=== PATIENT | female | born 1955 | race Caucasian/White ===

== ENCOUNTER → 2018-08-23 | Outpatient (CLI) | payer BC ==
--- NOTE | 2018-08-26 09:01 | MM ---
Reason for exam: screening (asymptomatic). Last mammogram was performed 3 years and 10 months ago. History: Patient is postmenopausal. Benign excisional biopsy of the left breast, 2007. Benign excisional biopsy of the right breast. Took estrogen for 5 years. Physical Findings: A clinical breast exam by your physician is recommended on an annual basis and results should be correlated with mammographic findings. MG 3D Screening Mammo W/Cad Bilateral CC and MLO view(s) were taken. Prior study comparison: October 10, 2014, mammogram, performed at [facility]. June 14, 2013, mammogram, performed at [facility]. There are scattered fibroglandular densities. Previous mammotome biopsy in the right and left breast. No significant changes when compared with prior studies. ASSESSMENT: Benign, BI-RAD 2 RECOMMENDATION: Routine screening mammogram of both breasts in 1 year.
== END | disposition home or self-care (01) ==
LOC: RADMAMWWP 13:30
PROVIDERS: ATTEND Family Medicine
DX: Z12.31 Encounter for screening mammogram for malignant neoplasm of breast (principal)
CPT/HCPCS: 77063; 77067

== ENCOUNTER → 2019-11-06 | Outpatient (CLI) | payer BC ==
--- NOTE | 2019-11-08 14:37 | MM ---
Reason for exam: screening (asymptomatic). Last mammogram was performed 1 year and 2 months ago. History: Patient is postmenopausal. Benign excisional biopsy of the left breast, 2007. Benign excisional biopsy of the right breast. Took estrogen for 5 years. Physical Findings: A clinical breast exam by your physician is recommended on an annual basis and results should be correlated with mammographic findings. MG 3D Screening Mammo W/Cad Bilateral CC and MLO view(s) were taken. Prior study comparison: August 23, 2018, bilateral MG 3d screening mammo w/cad. October 10, 2014, mammogram, performed at [facility]. The breast tissue is heterogeneously dense. This may lower the sensitivity of mammography. There are benign appearing round calcifications bilaterally. Previous mammotome biopsy in the right and left breast. There is no discrete abnormality. ASSESSMENT: Benign, BI-RAD 2 RECOMMENDATION: Routine screening mammogram of both breasts in 1 year.
== END | disposition home or self-care (01) ==
LOC: RADMAMWWP 13:56
PROVIDERS: ATTEND Internal Medicine
DX: Z12.39 Encounter for other screening for malignant neoplasm of breast (principal)
CPT/HCPCS: 77063; 77067

== ENCOUNTER → 2022-04-15 | Outpatient (CLI) | payer MEDICARE ==
--- NOTE | 2022-04-16 14:50 | MM ---
Reason for Exam: Screening (asymptomatic). Last mammogram was performed 2 year(s) and 5 month(s) ago. Patient History: Menarche at age 15. First Full-Term at age 20. Postmenopausal. Patient used Estrogen for 5 years. Benign Excisional Biopsy on the right side. 2008, Benign Excisional Biopsy on the left side. Risk Values: Lianet 5 year model risk: 2.1%. NCI Lifetime model risk: 7.3%. Film Views: Bilateral CC views were taken. Bilateral MLO views were taken. Prior Study Comparison: 10/10/2014 Screening Mammogram, [facility]. 08/23/2018 Bilateral Screening Mammogram, [facility]. 11/06/2019 Bilateral Screening Mammogram, [facility]. Tissue Density: There are scattered fibroglandular densities. Findings: Analyzed By CAD. HX OF BILAT BENIGN EXCISIONAL BXs....NO SCARS VISUALIZED....BX MARKER IN EACH BREAST There is no suspicious group of microcalcifications or new suspicious mass in either breast. Overall Assessment: Benign, BI-RAD 2 Management: Screening Mammogram of both breasts in 1 year. A clinical breast exam by your physician is recommended on an annual basis and results should be correlated with mammographic findings. Electronically signed and approved by: Alton Kahn M.D. Radiologis
== END | disposition home or self-care (01) ==
LOC: RADMAMWWP 09:17
PROVIDERS: ATTEND Internal Medicine
DX: Z12.31 Encounter for screening mammogram for malignant neoplasm of breast (principal); Z78.0 Asymptomatic menopausal state
CPT/HCPCS: 77063; 77067

== ENCOUNTER → 2022-06-01 | Outpatient (CLI) | payer MEDICARE ==
--- NOTE | 2022-06-01 11:31 | XR ---
EXAMINATION TYPE: XR chest 2V DATE OF EXAM: 06/01/2022 COMPARISON: NONE TECHNIQUE: PA and lateral views submitted. HISTORY: Shortness of breath FINDINGS: The lungs are clear and there is no pneumothorax, pleural effusion, or focal pneumonia. Hypertrophi c and degenerative changes spine. Heart size is normal. No failure. Curvature of the spine. Mild supe rior endplate compression deformity thoracolumbar junction. No overt failure. IMPRESSION: 1. No acute process.
== END | disposition home or self-care (01) ==
LOC: RADXRMAIN 11:13
PROVIDERS: ATTEND Internal Medicine
DX: R06.09 Other forms of dyspnea (principal)
CPT/HCPCS: 71046

== ENCOUNTER → 2022-08-11 | Outpatient (CLI) | payer MEDICARE ==
[2022-08-11 10:21] LABS: African American GFR (CKD) >90 (>60 ml/min/1.73 sqM); Blood Urea Nitrogen 13 mg/dL (7-17); Non-African American GFR(CKD) >90 (>60 ml/min/1.73 sqM)
--- NOTE | 2022-08-11 10:54 | CT ---
EXAMINATION TYPE: CT chest w con CT DLP: 167.70 mGycm, Automated exposure control for dose reduction was used. DATE OF EXAM: 08/11/2022 10:40 AM CLINICAL INDICATION:Female, 67 years old with history of R06.09 DYSPNEA; PHH, cough TECHNIQUE: Multiple axial images were obtained through the chest following the administration of 70 c c of Isovue 300. Coronal and sagittal reformats reviewed. FINDINGS: LUNGS/ PLEURA: Biapical pleural-parenchymal scarring. No pneumothorax or pleural effusion. Right upp er lobe 1.2 cm groundglass opacity (series 4, image 15). Right middle lobe 2.5 x 1.6 cm consolidative opacity (series 4, image 34). AIRWAY: Patent and unremarkable.. HEART: Size within normal limits. No pericardial effusion. MEDIASTINUM: No gross evidence of adenopathy. VASCULATURE: No aortic aneurysm. MUSCULOSKELETAL: No acute osseous abnormalities. No aggressive osseous lesions. Levo curvature of the thoracic spine. SOFT TISSUES/LYMPH NODES: Unremarkable. LOWER NECK: No significant findings. UPPER ABDOMEN: No significant findings. IMPRESSION: Right middle lobe 2.5 cm consolidative opacity and right upper lobe 1.2 cm groundglass opacity. This may represent an infectious/inflammatory process. However malignancy is not excluded. Follow-up CT in 3-6 months is recommended to assess for resolution.
== END | disposition home or self-care (01) ==
LOC: RADCTMAIN 09:41
PROVIDERS: ATTEND Internal Medicine
DX: R91.8 Other nonspecific abnormal finding of lung field (principal)
CPT/HCPCS: 82565; 84520; 71260; 36415; Q9967

== ENCOUNTER → 2023-08-06 | Outpatient (CLI) | payer MEDICARE ==
[2023-08-06 10:50] LABS: African American GFR (CKD) >90 (>60 ml/min/1.73 sqM); Blood Urea Nitrogen 15 mg/dL (7-17); Non-African American GFR(CKD) >90 (>60 ml/min/1.73 sqM)
--- NOTE | 2023-08-06 13:25 | CT ---
EXAMINATION TYPE: CT chest w con DATE OF EXAM: 08/06/2023 COMPARISON: 08/11/2022 HISTORY: 68-year-old female R91.1, pulmonary nodule TECHNIQUE: Contiguous axial scanning of the chest after the administration of 100 mL of Isovue 300. Coronal/sagittal reconstructions performed. CT DLP: 531mGycm. Automatic exposure control utilized for a dose reduction. FINDINGS: The heart is normal size without pericardial effusion. Three-vessel coronary artery calcifications ar e present in the remarkable for coronary artery disease. Aorta normal caliber with conventional arch vessel branching anatomy. No thoracic lymphadenopathy by CT size criteria. * Vague 1.1 cm groundglass patchy anterior right upper lobe is unchanged. Biapical pleural parenchym al scarring redemonstrated. * Focal consolidation measuring 2.8 x 1.9 cm in the right middle lobe previously measured 2.4 x 1.7 cm. Minimal emphysematous change. No new consolidation or pleural effusion. Bilateral extrarenal pelves. Visualized upper abdomen shows moderate wording. Bones: Slight dextroconvex scoliotic curvature with moderate degenerative disc disease midthoracic sp ine. IMPRESSION: Focal consolidation right middle lobe measures 2.8 x 1.9 cm versus 2.4 x 1.7 cm, previously. Consider a focus of adenomatous hyperplasia. Given the very slow growth, recommend ongoing surveillance follo w-up to exclude development into an adenocarcinoma. The 1.1 cm right upper lobe groundglass remains u nchanged and similar follow-up can be performed.
== END | disposition home or self-care (01) ==
LOC: RADCTMAIN 09:32
PROVIDERS: ATTEND Internal Medicine
DX: R91.1 Solitary pulmonary nodule (principal); R91.8 Other nonspecific abnormal finding of lung field
CPT/HCPCS: 82565; 84520; 71260; 36415; Q9967

== ENCOUNTER → 2023-10-07 | Outpatient (CLI) | payer MEDICARE ==
--- NOTE | 2023-10-10 13:32 | PE ---
EXAMINATION TYPE: PET CT fusion skull to thigh DATE OF EXAM: 10/07/2023 COMPARISON: CT chest 08/06/2023 Prior PET/CT: No prior HISTORY: Solitary pulmonary nodule TECHNIQUE: Following the intravenous administration of 10.4 mCi of F-18 FDG, whole body images are p erformed from the skull base to the midthigh. Images are reviewed on the computer in the coronal, ax ial, and sagittal planes. Reconstructed rotating images are created on independent workstation and r eviewed on the computer. A localization and attenuation correction CT is performed in conjunction w ith the PET scan. DLP: 282.45 mGycm SCAN: Initial Blood glucose: 86 mg/dL Average Mediastinum SUV: 2.08 Average Liver SUV: 2.64 FINDINGS: NECK: No abnormal uptake THORAX: There is uptake within the right middle lobe mass near the lung base measuring 2.62. Max SUV is 4.08. No suspicious mediastinal uptake. Small peripheral right upper lobe nodule has uptake of SUV 0.96. Image 73 ABDOMEN: No abnormal uptake PELVIS: No abnormal uptake OSSEOUS STRUCTURES: No abnormal uptake LOCALIZATION CT: Groundglass opacities within the anterior right lung, image 87. No significant uptak e, neoplasm however is not excluded for groundglass opacities. COMPARISON: Current measurements of right lower lobe density is 2.0 x 3.[address] measurement 2.8 x 1.9 cm. IMPRESSION: 1. Increased uptake right lobe lung base mass suspicious for neoplasm. This is slightly greater than background and other etiologies including atelectasis could be within the differential. 2. No additional suspicious area of uptake to suggest primary or metastatic neoplasm.
== END | disposition home or self-care (01) ==
LOC: RADPETMAIN 07:38
PROVIDERS: ATTEND Internal Medicine Critical Care Medicine
DX: R91.1 Solitary pulmonary nodule (principal); R91.8 Other nonspecific abnormal finding of lung field
CPT/HCPCS: 78815; A9552

== ENCOUNTER 2023-11-25 10:38 | Day surgery (SDC) | payer MEDICARE ==
[2023-11-17 16:42] VITALS: BMI 21.2
[~2023-11-25 10:38] MED LIST: LACTATED RINGERS 1,000 ML IV SCH
--- NOTE | 2023-11-25 11:24 | CT ---
EXAMINATION TYPE: CT chest wo con DATE OF EXAM: 11/25/2023 COMPARISON: Chest CT August 06, 2023 and PET/CT October 07, 2023 HISTORY: pre bronchoscopy CT DLP: 456 mGycm. Automated Exposure Control for Dose Reduction was Utilized. TECHNIQUE: CT scan of the thorax is performed without IV contrast. FINDINGS: Exam is for bronchoscopy planning and not for diagnostic purposes. Stable near 1 cm focus of groundgl ass opacity anterior right upper lobe axial image 78. Slight interval Worsening of the area of ground glass opacity and more inferior focal nodular consolidation in the right middle lobe from axial imag es 160 through 190. Prominent but subcentimeter lymph nodes in the pericarinal and subcarinal region are noted. IMPRESSION: As above.
[2023-11-25] MEDS ORDERED: ONDANSETRON 4 MG/2 ML VIAL ONE (11:41)
[2023-11-25] MEDS ORDERED: ONDANSETRON 4 MG/2 ML VIAL IVP ONE (11:44)
[2023-11-25] MEDS ORDERED: DEXAMETHASONE SOD PHOSPHATE 4 MG/ML 1 ML VIAL IVP ONE (11:44)
[2023-11-25] MEDS ORDERED: PROPOFOL 10 MG/ML 20 ML VIAL IV ONE (12:35)
[2023-11-25] MEDS ORDERED: NEOSTIGMINE 1 MG/ML 10 ML VIAL ONE (12:35)
[2023-11-25] MEDS ORDERED: SUCCINYLCHOLINE CHLORIDE 200 MG/10 ML VIAL IV ONE (12:35)
[2023-11-25] MEDS ORDERED: GLYCOPYRROLATE 0.2 MG/ML 2 ML VIAL ONE (12:35)
[2023-11-25] MEDS ORDERED: fentaNYL (PF) 50 MCG/ML 2 ML AMP ONE (12:35)
[2023-11-25] MEDS ORDERED: MIDAZOLAM 2 MG/2 ML VIAL ONE (12:35)
[2023-11-25] MEDS ORDERED: LIDOCAINE 1% INJ 10MG/ML (20 ML MDV) ONE (12:35)
[2023-11-25] MEDS ORDERED: ROCURONIUM 10 MG/ML (5 ML VIAL) IV ONE (12:35)
[2023-11-25 14:13] VITALS: TEMP 97
--- NOTE | 2023-11-25 14:40 | FL ---
EXAMINATION TYPE: FL bronchoscopy Intraoperative/procedural fluoroscopic services were provided. Tota l fluoroscopy time is 81.3 seconds with a total of 9 submitted images to PACS. Please see the operati ve/procedural note for further details. DAP: 0.20415 Gycm2
--- NOTE | 2023-11-25 15:22 | XR ---
EXAMINATION TYPE: XR chest 1V portable DATE OF EXAM: 11/25/2023 COMPARISON: 06/01/2022 INDICATION: Post bronchoscopy TECHNIQUE: Single frontal view of the chest is obtained. FINDINGS: The heart size is normal. The pulmonary vasculature is normal. There is increased lung markings seen in the right infrahilar region. Underlying masses are not exclu ded. Infiltrate could be considered. No pneumothorax is evident post bronchoscopy IMPRESSION: 1. Right infrahilar filtrate or mass. Follow-up is recommended.
[2023-11-25 15:45] VITALS: RESP 16
[2023-11-25 16:08] VITALS: BP 139/79; PULSE 55
--- NOTE | 2023-11-26 08:18 | P.PCN ---
Date of Procedure: 11/25/23 Operative Findings: Preoperative Diagnosis: Right middle lobe opacity Postoperative Diagnosis: Right middle lobe opacity mediastinal lymphadenopathy on endobronchial ultrasound. Procedure(s) Performed: Flexible bronchoscopy Robotic-assisted bronchoscopy and addition to radial ultrasound evaluation of the Right middle lobe mass/opacity Robotic-assisted transbronchial needle aspirate, transbronchial biopsies of the Right middle lobe mass in addition to a bronchioloalveolar lavage Endobronchial ultrasound for mediastinal lymph node evaluation TBNA of the station [address] Anesthesia: GETA Surgeon: Mayur Huertas Estimated Blood Loss (ml): 0 Pathology: other Condition: stable Disposition: same day Operative Findings: A physical exam was performed. Informed consent was obtained from the patient after explaining all the risks (pneumothorax, life threatening bleeding, infection and adverse effects due to medications), benefits and alternatives to the procedure which the patient appeared to understand and so stated. The patie nt was connected to the monitoring devices. General anesthesia was induced and the patient was intubated by anesthesia. A final timeout was performed and the procedure confirmed by the attending staff bronchoscopist. The bronchoscope was inserted and the airway examined. The flexible bronchoscope was removed and the robotic bronchoscope was inserted. Registration was completed. I next guided the robotic bronchoscope using the navigation system into the right middle lobe lateral segment. Once in proper position, the bronchoscope was frozen. The radial EBUS probe was placed through the bronchoscope and confirmed abnormal u/s images vs normal lung. A needle was placed through the working channel and under fluoroscopic guidance, we sampled the area thought to have the mass twice. We then used a cloud biopsy pattern with ultrasound confirmation for 2 additional passes with the needle. U/S evaluation was then used to reconfirm location. Forceps were next introduced through working channel and extended the appropriate distance and 3 transbronchial biopsies were performed using fluoroscopic guidance. The u/s probe was then reinserted to confirm location. When confirmed this process was repeated for a total of 8-10 transbronchial biopsies. After reassessment with EBUS, a brush was placed through the extendable working channel for 1 pass with fluoroscopic guidance. U/S evaluation was then used to confirm location. 40ml of saline was then instilled into the area of the lesion. The robotic bronchoscope was removed and the airway inspected with a flexible bronchoscope and 10 ml of effluent from the BAL was collected. The aspirate was bloody and ultimately declotted and based on that, the sample was discarded. Flex. bronchoscope was inserted and regular suctioning was done. At the completion of the procedure, no residual secretions or bloody material within the airway. The bronchoscope was removed. The patient was extubated. Endobronchial ultrasound was done with mediastinal lymph node evaluation. Her last evaluation of the various mediastinal stations yielded a 12 mm subcarinal lymph node and 8 mm right hilar station 10 R lymph nodes. Transbronchial needle aspirates of both was done using a 22-gauge vizishot needle. A total of 3 passes were obtained from each station. No complication, endobronchial ultrasound was removed and flexible bronchoscope was reinserted for clearance of the airway, any recurrent secretions. Bronchoscope was removed and the patient was transferred to recovery in stable condition. No complications. FINDINGS: 1.The airways appeared normal 2 Successful navigation, ultrasonographic identification, and biopsies of Right middle lobe mass 3.The the radial ultrasound view was (Concentric). RECOMMENDATIONS: Await pathology and cytology results The referring physician will be alerted to the results when available. The patient was advised to follow up with the referring physician with the biopsy results Patient will be called with results.
== END 2023-11-25 16:00 | disposition home or self-care (01) ==
LOC: ORWHC2ENDO 10:38
PROVIDERS: ATTEND Internal Medicine Critical Care Medicine
DX: C34.2 Malignant neoplasm of middle lobe, bronchus or lung (principal); Z11.52 Encounter for screening for COVID-19; G47.33 Obstructive sleep apnea (adult) (pediatric); E78.5 Hyperlipidemia, unspecified; E03.9 Hypothyroidism, unspecified; M81.0 Age-related osteoporosis without current pathological fracture; Z79.82 Long term (current) use of aspirin; Z79.890 Hormone replacement therapy; Z79.899 Other long term (current) drug therapy
CPT/HCPCS: 87798 ×3; 87496; 87498; 87529; 88108; 88305; 88342; 87502; 87634; 88341; 87070; 87205; 87116; 87102; 87206; 87635; 71045; 71250; 31628; 31623; 31624; 31652; J2250; J0330; J1100; J2710; J2405; J2001; J3010; J2704; S2900; 31633

== ENCOUNTER → 2023-12-13 | Outpatient (CLI) | payer MEDICARE ==
--- NOTE | 2023-12-13 09:31 | MR ---
EXAMINATION TYPE: MR brain wo/w con DATE OF EXAM: 12/13/2023 9:04 AM CLINICAL INDICATION:Female, 68 years old with history of C34.2, Lung Cancer COMPARISON: 11/02/2012 TECHNIQUE: Multi planar, multi sequence imaging was performed through the brain including: T1, T2, In version recovery, susceptibility weighted imaging and gradient echo imaging and Diffusion weighted im aging. The patient was then given intravenous contrast and multi planar, T1 fat-saturation images wer e obtained. IV Contrast: 6 cc Gadavist FINDINGS: No cerebellar developmental venous anomaly with postcontrast enhancement and blooming artif act present. The sarabia-white junctions, ventricular system, basal cisterns appear unremarkable. Diffu aly-weighted imaging shows no evidence of restricted diffusion to suggest acute/subacute infarct. In tracranial arterial flow voids are maintained. Midline structures show no abnormality. Scattered foci of high T2 signal intensity are seen within the periventricular white matter. The susceptibility minor ghted images do not reveal any evidence for micro-hemorrhage. After administration of gadolinium, no abnormal enhancement is seen. The bone marrow signal is within normal limits. Paranasal sinuses and mastoid air cells: No significant paranasal sinus disease. Visualized orbits: Bilateral aphakia IMPRESSION: 1. No abnormal postcontrast enhancement to suggest intra-axial metastatic disease. No evidence of int racranial mass, acute/subacute infarct, or abnormal enhancement. 2. Left cerebellar hemisphere developmental venous anomaly. 3. Nonspecific white matter changes, likely related to small vessel ischemic disease.
== END | disposition home or self-care (01) ==
LOC: RADMRIMAIN 08:16
PROVIDERS: ATTEND Internal Medicine Hematology & Oncology
DX: Q28.3 Other malformations of cerebral vessels (principal); G93.89 Other specified disorders of brain; C34.2 Malignant neoplasm of middle lobe, bronchus or lung
CPT/HCPCS: 70553; A9585

== ENCOUNTER → 2023-12-16 | Outpatient (CLI) | payer MEDICARE ==
--- NOTE | 2023-12-16 12:35 | CA ---
Exercise Stress Test Report Name: Vanessa Gonzalez Exam Date: 12/16/2023 11:10 Exam Location: [place] Stress Ht (in): 68 Wt (lb): 140 BSA: 1.76 Ordering Phys: Truong Estrella MD Referring Phys: MARY, Technologist: Jv Howard Age: 68 Gender: F : 1955 Procedure CPT: Indications: C34.2 LUNG CANCER ICD-10 Codes: Patient History: Medications: Meds past 24 hrs: Pretest Chest Pain: STRESS TEST Parth Protocol Exercise Duration (min:sec): 09:[address] Depressions (mm): Angina Score: Denis Score: Resting HR (bpm): 67 Peak HR (bpm): 155 Resting BP (mmHg): 123 / 82 Peak BP (mmHg): 164 / 100 MPHR: 152 Target HR: 129 % MPHR: 102 METS: 10.9 Total Dose: Peak Dose: Atropine: Double Product: 85799 BP Response: Stress Termination: Reached target heart rate Stress Symptoms: No chest pain or symptoms Stress Summary: ECG ANALYSIS Resting ECG: Stress ECG: CONCLUSIONS Excellent exercise tolerance Normal EKG in response to exercise Dr. Shailesh Graves MD (Electronically Signed) Final Date: 16 December 2023 12:34
== END | disposition home or self-care (01) ==
LOC: RADNMMAIN 10:32
PROVIDERS: ATTEND Thoracic Surgery (Cardiothoracic Vascular Surgery)
DX: C34.2 Malignant neoplasm of middle lobe, bronchus or lung (principal)
CPT/HCPCS: 93017

== ENCOUNTER → 2024-01-03 | Outpatient (CLI) | payer MEDICARE ==
[2024-01-03 11:01] LABS: Partial Thromboplastin Time 24.6 sec (22.0-30.0); Prothrombin Time 10.6 sec (10.0-12.5)
[2024-01-03 15:54] LABS: Blood Urea Nitrogen 12.6 mg/dL (9.0-27.0); Carbon Dioxide 27.1 mmol/L (21.6-31.8); Chloride 97 mmol/L (96-109); Glucose 100 mg/dL (70-110); Potassium 4.1 mmol/L (3.5-5.5); Sodium 136 mmol/L (135-145)
[2024-01-03 16:10] LABS: Basophils # (A) 0.03 X 10*3/uL (0.00-0.10); Basophils % (A) 0.7 %; Eosinophils # (A) 0.06 X 10*3/uL (0.04-0.35); Eosinophils % (A) 1.4 %; HCT 42.5 % (37.2-46.3); Lymphocytes # (A) 1.33 X 10*3/uL (0.90-5.00); Lymphocytes % (A) 31.2 %; MCH 31.3 pg (27.0-32.0); MCHC 32.9 g/dL (32.0-37.0); MCV 94.9 FL (80.0-97.0); Mean Platelet Volume 10.7 FL (9.5-12.2); Monocytes # (A) 0.59 X 10*3/uL (0.20-1.00); Monocytes % (A) 13.8 %; NRBC Per 100 WBC 0 X 10*3/uL (0.00-0.01); Neutrophils # (A) 2.24 X 10*3/uL (1.80-7.70); Neutrophils % (A) 52.7 %; Platelet Count 213 X 10*3/uL (140-440); RBC 4.48 X 10*6/uL (4.10-5.20); RDW 14.1 % (11.5-14.5); WBC 4.26 X 10*3/uL (4.50-10.00)
[2024-01-03 17:33] LABS: Appearance,Urine Clear (Clear); Bilirubin,Urine Negative (Negative); Blood,Urine Negative (Negative); Color,Urine Yellow (Yellow); Ketones,Urine Negative (Negative); Nitrite,Urine Negative (Negative); PH, Urine 7.5; Specific Gravity,Urine 1.009 (1.001-1.030); Urobilinogen,Urine 0.2 E.U./DL
[2024-01-03 17:43] LABS: Bacteria,Urine None Seen (None Seen)
== END | disposition home or self-care (01) ==
LOC: LABPAT 10:06
PROVIDERS: ATTEND Thoracic Surgery (Cardiothoracic Vascular Surgery)
DX: Z01.812 Encounter for preprocedural laboratory examination (principal); C34.11 Malignant neoplasm of upper lobe, right bronchus or lung; E87.8 Other disorders of electrolyte and fluid balance, not elsewhere classified; Z79.899 Other long term (current) drug therapy; R58 Hemorrhage, not elsewhere classified; R00.1 Bradycardia, unspecified
CPT/HCPCS: 36415; 80051; 81001; 82565; 82947; 84520; 85025; 85610; 85730; 86850; 86900; 86901; 87086; 93005

== ENCOUNTER 2024-01-13 05:48 | Inpatient (IN) | payer MEDICARE ==
[2024-01-10 09:10] VITALS: BMI 21.2
[2024-01-13] MEDS: LACTATED RINGERS 1,000 ML IV SCH (06:10)
[2024-01-13] MEDS ORDERED: HYDROmorphone 0.5 MG/0.5 ML SYRINGE IVP PRN (07:00)
[2024-01-13] MEDS: fentaNYL (PF) 50 MCG/1 ML VIAL IVP ONE (07:23)
[2024-01-13] MEDS: ONDANSETRON 4 MG/2 ML VIAL IVP ONE (07:23)
[2024-01-13] MEDS: MIDAZOLAM 2 MG/2 ML VIAL IVP ONE (07:23)
[2024-01-13] MEDS ORDERED: GLYCOPYRROLATE 0.2 MG/ML 2 ML VIAL ONE (07:25)
[2024-01-13] MEDS ORDERED: ePHEDrine 50 MG/ML 1 ML VIAL ONE (07:25)
[2024-01-13] MEDS ORDERED: LIDOCAINE 1% INJ 10MG/ML (20 ML MDV) ONE (07:25)
[2024-01-13] MEDS ORDERED: PROPOFOL 10 MG/ML 20 ML VIAL IV ONE (07:25)
[2024-01-13] MEDS ORDERED: KETAMINE HCL IN 0.9 % NACL 50 MG/5 ML SYRINGE ONE (07:25)
[2024-01-13] MEDS ORDERED: ROPIVACAINE 5 MG/ML 30 ML VIAL ONE (07:25)
[2024-01-13] MEDS ORDERED: fentaNYL (PF) 50 MCG/ML 2 ML AMP ONE (07:25)
[2024-01-13] MEDS ORDERED: ROCURONIUM 10 MG/ML (5 ML VIAL) IV ONE (07:25)
[2024-01-13] MEDS ORDERED: SUCCINYLCHOLINE CHLORIDE 200 MG/10 ML VIAL IV ONE (07:25)
[2024-01-13] MEDS ORDERED: KETOROLAC 15 MG/ML 1 ML VIAL ONE (07:25)
[2024-01-13] MEDS ORDERED: MIDAZOLAM 2 MG/2 ML VIAL ONE (07:25)
[2024-01-13] MEDS ORDERED: HYDROmorphone (PF) 1 MG/ML ONE (07:25)
[2024-01-13] MEDS ORDERED: NEOSTIGMINE 1 MG/ML 10 ML VIAL ONE (07:25)
[2024-01-13] MEDS: BUPIVACAINE (PF) 0.5% 30 ML VIAL SQ ONE (08:15)
--- NOTE | 2024-01-13 09:22 | P.ANPRN ---
Procedure Note - Anesthesia - Nerve Block Performed Right Erector Spinae Single Time Out Performed: Yes ([id number]) Date of Procedure: 01/13/24 Procedure Start Time: Procedure Stop Time: Location of Patient: PreOp Indication: Acute Post-Operative Pain, Requested by Surgeon Specifically requested for management of pain by DrLane: Truong Estrella (\) Sedation Type: Sedate with meaningful contact maintained Preparation: Sterile Prep Position: Supine Catheter: None Needle Types: Pajunk Needle Gauge: 21 Ultrasound used to visualize needle placement: Yes Ultrasound used to observe medication spread: Yes Injectate: 0.5% Ropivacaine (see comment for volume) (30cc) Blood Aspirated: No Pain Paresthesia on Injection Noted: No Resistance on Injection: Normal Image Stored and Saved: Yes Events: Uneventful and Well Tolerated
--- NOTE | 2024-01-13 10:12 | P.OP ---
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 Bronchoscopy 2. Left robotic assisted thorascopic surgery with wedge resection x 3 3. Mediastinal lymph node dissection 4. Intercostal nerve block - 2 levels Anesthesia: INGRIDA Surgeon: Truong Estrella Flagger #1: Dallin De La Cruz Estimated Blood Loss (ml): 10 Pathology: other (RML wedge x 2, RUL wedge, LN Stations 4,7,8,9,10) Condition: stable Disposition: PACU Indications for Procedure: This patient is a 68 year-old female who is a lifelong non-smoker who had covid last year and cxr revealed a RML nodule. Further studies revealed a 2.5-3cm mass in the right middle node that was mildly FDG avid and biopsy revealed a well differentiated adenocarcinoma with lepidic pattern. She also was noted to have 1.2cm opacity in the RUL which is central and minimal FDG avidity. The decision was made to bring her for surgical resection. Operative Findings: RML wedge with close margin. Additional wedge performed to obtain negative margin. RUL nodule not identified grossly. Wedge performed but unlikely to contain nodule. Description of Procedure: The patient underwent errector spinae block and arterial line placement in the pre-operative suite. She was brought back to the operating room and placed in the supine postion. She was intubated with a double lumen tube and bronchoscopy was performed to confirm tube placement and for diagnostic purposes. The patient was then positioned in the left lateral decubitus position and bronchoscopy was once again performed to check the tube. The patients right chest was prepped and draped in the usual sterile fashion and antibiotic were given. I made a 12mm incision posterior axillary line, 8th intercostal space and inserted the 12mm port. The lung was visualized and the chest was insufflated. Two additional ports were placed in the anterior axillary and mid axillary line and an assist port was placed in the 10th intercostal space inferiorly. Intercostal nerve blocks were performed using 0.25% marcaine in both places. The [employer] was docked and the middle lobe mass was easily identified. The decision was made to wedge this mass given its slow growing features. A generous wedge was performed using serial firings of the robotic black load stapler and sent to pathology. Frozen section revealed "a close" margin. A second wedge was performed using serial firings of the robotic black and blue loads. At this point, a mediastinal lymph node dissection was performed. The level 8,9,7, 4 and 10 nodes were harvested. The upper lobe was once again examined and it was very difficult to discern the centrally located nodule. A wedge resection was performed and sent to pathology. Given its small size, even if the nodule in the upper lobe was left behind, the decision was made to perform close surveillance given its lepidic growth pattern.
[2024-01-13] MEDS: HYDROmorphone 0.5 MG/0.5 ML SYRINGE IVP ONE (10:42)
[2024-01-13] MEDS ORDERED: IPRATROPIUM-ALBUTEROL 3 ML NEB IH PRN (11:28)
--- NOTE | 2024-01-13 11:52 | XR ---
EXAMINATION TYPE: XR chest 1V portable DATE OF EXAM: 01/13/2024 COMPARISON: 11/25/2023 HISTORY: Chest tube TECHNIQUE: Single frontal view of the chest is obtained. FINDINGS: Right-sided chest tube with subcutaneous emphysema. Tiny right apical pneumothorax measuri ng less than 5%. There is postsurgical change and increased density in the right perihilum which may be postoperative. Left apical pleural thickening. Scoliotic curvature to the spine with degenerative changes. IMPRESSION: 1. Postsurgical changes with subcutaneous emphysema. There is likely a residual tiny less than 5% api chelita pneumothorax with chest tube in position.
[2024-01-13] MEDS: IPRATROPIUM-ALBUTEROL 3 ML NEB IH SCH (11:54)
[2024-01-13] MEDS: KETOROLAC 15 MG/ML 1 ML VIAL IVP SCH (12:41)
[2024-01-13] MEDS: DEXTROSE 5%-0.45% NACL 1,000 ML IV SCH (12:42)
[2024-01-13] MEDS: traMADol 50 MG TAB PO PRN (14:27)
--- NOTE | 2024-01-13 15:00 | P.CNPUL ---
History of Present Illness Consult date: 01/13/24 Requesting physician: Truong Estrella Reason for consult: lung mass, abnormal CXR/CT Chief complaint: Lung cancer. History of present illness: Pulmonary consult dated January 13, 2024. 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 The patient had surgery today, by Dr. Estrella, and the procedures that were performed including bronchoscopy, robotically assisted wedge resection x 3, mediastinal lymph node dissection, and intercostal nerve block. Wedges were done of the right upper lobe, and the right middle lobe, and the various node stations were sampled including station [id number] and 10 on the right. The patient had a previous biopsy by my partner, which revealed the actual diagnosis. The patient is seen today in room 362. She is on room air. She is resting comfortably. She has got a D5.45 IV running at 50 cc an hour. She does have some pain at the surgical site. No labs as yet. Chest x-ray shows postsurgical changes with subcutaneous emphysema, and a 5% apical pneumothorax on the right. Review of Systems REVIEW OF SYSTEMS: CONSTITUTIONAL: [Negative.] NEUROLOGIC: [ Negative.] HEENT: [ Negative.] CARDIAC: [Negative.] PULMONARY: Pain at the surgical site. GI: [Negative.] : [Negative.] RHEUMATOLOGIC: [ Negative.] IMMUNOLOGIC: [ Negative.] ENDOCRINE: [Negative. ] DERMATOLOGIC: [Negative.] Past Medical History Past Medical History: Cancer, Hyperlipidemia, Sleep Apnea/CPAP/BIPAP, Thyroid Disorder Additional Past Medical History / Comment(s): Recent dx lung ca rt lung Nov 2023, hx osteoporosis,uses Indapamie as a potassium jose, uses C-PAP prn. History of Any Multi-Drug Resistant Organisms: None Reported Past Surgical History: Hysterectomy, Tubal Ligation Additional Past Surgical History / Comment(s): bi lat cataracts removed Past Anesthesia/Blood Transfusion Reactions: No Reported Reaction, Motion Sickness Smoking Status: Never smoker - Past Family History Father Family Medical History: CVA/TIA Medications and Allergies Home Medications Medication Instructions Recorded Confirmed Type Aspirin 81 mg PO QAM 11/17/23 01/13/24 History Ezetimibe [Zetia] 5 mg PO MOWEFR 11/17/23 01/13/24 History Indapamide [Lozol] 1.25 mg PO QAM 11/17/23 01/13/24 History Levothyroxine Sodium [Synthroid] 50 mcg PO QAM 11/17/23 01/13/24 History Multivit/Iron Sulf/Folic Acid 1 each PO QAM 11/17/23 01/13/24 History [Multivitamin with Iron] Prolia (Unknown Dose) 1 dose SQ Q180D 11/17/23 01/13/24 History Atorvastatin [Lipitor] 20 mg PO MOWEFR 01/10/24 01/13/24 History Allergies Allergy/AdvReac Type Severity Reaction Status Date / Time No Known Allergies Allergy Verified 01/13/24 06:15 Physical Exam Osteopathic Statement: *. No significant issues noted on an osteopathic structural exam other than those noted in the History and Physical/Consult. Vitals: Vital Signs Temp Pulse Resp BP Pulse Ox 01/13/24 12:01 98 01/13/24 10:59 50 L 22 126/75 100 01/13/24 10:44 55 L 21 127/74 100 01/13/24 10:29 52 L 14 125/77 100 01/13/24 10:14 55 L 14 127/81 100 01/13/24 09:59 97.2 F L 54 L 14 126/73 100 01/13/24 07:38 66 18 127/71 99 01/13/24 06:16 97.0 F L 72 20 137/80 98 Intake and Output 01/12/24 01/13/24 01/13/24 22:59 06:59 14:59 Intake Total 200 1750 Output Total 360 Balance 200 1390 Intake: IV 200 1750 Output: Urine 350 Estimated Blood Loss 10 Other: Weight 65.5 kg No acute distress, oriented 3. Currently on room air. HEENT examination is grossly unremarkable. Mucous membranes are moist. No oral lesions. Neck supple. Full range of motion. No adenopathy thyromegaly or neck vein distention. Cardiovascular examination reveals regular rhythm rate. S1-S2 normal. No S3 or S4. No discernible murmur noted. Heart rate 50 bpm. Lungs reveal diminished breath sounds on the right. No adventitious lung sounds. Left lung sounds are clear as well. Room air saturation between 98 and 100%. Chest tube noted on the right. Abdomen soft bowel sounds are heard. No masses or tenderness. Extremities are intact. No cyanosis clubbing or edema. Skin is without rash or lesion. Neurologic examination is brief but nonfocal. Results - Laboratory Findings Abnormal lab findings: Abnormal Labs 01/03/24 10:21 Crossmatch See Detail - Diagnostic Findings Chest x-ray: image reviewed Assessment and Plan Assessment: Postop day #0, robotically assisted wedge resection, right middle lobe x 2, right upper lobe x 1. In addition, the patient had mediastinal lymph node dissection, bronchoscopy, and intercostal nerve block. Recent diagnosis of lipidic adenocarcinoma, involving the right middle lobe. History of hyperlipidemia. History of hypertension. History of osteoporosis. Lifelong non-smoker. Plan: Plan dated January 13, 2024. The patient is seen today in room 362. Family members at the bedside. The patient is currently on room air. The patient is on dextrose with half-normal saline at 50 cc an hour. The patient has an incentive spirometer at the bedside. We show her how to use it, and asked her to use it on a frequent basis. We also recommend deep breathing, coughing, clearing of secretions. Postsurgical changes are seen on the x-ray. There is a tiny apical pneumothorax. Chest tube was noted. Will continue to follow the patient, and make recommendations were appropriate. Time with Patient: Greater than 30
[2024-01-13] MEDS: ACETAMINOPHEN TAB 325 MG TAB PO PRN (16:20)
[2024-01-13] MEDS: HEPARIN SODIUM,PORCINE 5,000 UNIT/ML 1 ML VIAL SQ SCH (16:20)
[2024-01-13] MEDS: DEXAMETHASONE SOD PHOSPHATE 4 MG/ML 1 ML VIAL IV ONE (18:41)
--- NOTE | 2024-01-13 18:43 | P.CONS ---
History of Present Illness - Reason for Consult Consult date: 01/13/24 Medical management Requesting physician: Truong Estrella - Chief Complaint Robotic assisted thoracoscopic wedge resection x 3 - History of Present Illness HISTORY OF PRESENT ILLNESS: This is a 68-year-old female patient of mine with a previous medical history significant for mixed hyperlipidemia, hypothyroidism, history of osteoporosis without pathological fracture, history of moderate obstructive sleep apnea, patient is a lifelong non-smoker, on surveillance CT of the coronary arteries she was found to have a pulmonary nodule this is after she developed to have a significant COVID infection this was started back in July and 2021, where the CT scan of the chest showed right middle lobe nodule/mass with right upper lobe consolidation, she was treated with multiple courses of oral antibiotic and steroid, she was referred to pulmonary medicine, and the patient was feeling fine at that time, up till recently when she came for her wellness visit and she was sent for a surveillance CT scan of the chest with contrast that showed an enlargement of the right middle lobe mass as well as right upper lobe infiltrate she was sent to Dr. 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 Finn and after appropriate staining the biopsy was sent to PD-L1 and next generation sequencing it was recommended at that time for the patient to go for surgical intervention followed by chemotherapy therefore the patient was referred to Dr. Estrella she underwent robotic assisted thoracoscopic right middle lobe wedge resection x 2 and right upper lobe wedge resection x 1 along with mediastinal lymph node dissection as well as intercostal nerve block, and we were asked to see the patient for postoperative medical management. Patient is lying down in bed in no apparent distress, she complains of pain in the right side, her x-ray showed minimal tiny apical pneumothorax, she does appear to have a chest tube in place, that appears to be sealed very well she is using incentive spirometer and she is not using any oxygen at this point in time, her oxygen saturation on room air was 97%. REVIEW OF SYSTEMS: Constitutional: No documented fever, no chills, no night sweats. No weight change. No weakness, fatigue or lethargy. No daytime sleepiness. EENT: No headache. No blurred vision or double vision, no loss of vision. No loss of Hearing, no ringing in the ears, no dizziness. No nasal drainage or congestion. No epistaxis. No sore throat. Lungs: No shortness of breath, occasional cough, no sputum production. No wheezing. Reports dyspnea with activity. Cardiovascular: No chest pain, no lower extremity edema. No palpitations. No paroxysmal nocturnal dyspnea. No orthopnea. No lightheadedness or dizziness. No syncopal episodes. Abdominal: Reports no abdominal pain. No nausea, vomiting. No diarrhea. No constipation. No bloody or tarry stools reports loss of appetite. Genitourinary: No dysuria, increased frequency, urgency. No urinary retention. Musculoskeletal: No myalgias. No muscle weakness, no gait dysfunction, no frequent falls. No back pain. No neck pain. Integumentary: , no lesions. No rash or pruritus. No unusual bruising. No change in hair or nails. Neurologic: No aphasia. No facial droop. No change in mentation. No head injury. No headache. No paralysis. No paresthesia. Psychiatric: No depression. No anxiety. No mood swings. Endocrine: No abnormal blood sugars. No weight change. PAST MEDICAL HISTORY: Hypothyroidism. Mixed hyperlipidemia Moderate obstructive sleep apnea Osteoporosis without pathological fracture History of COVID infection PAST SURGICAL HISTORY: Robotic assisted thoracoscopic wedge resection of the right middle lobe x 2 and right upper lobe x 1 with lymph node dissection January 13, 2024 Colonoscopy 02/26/2022 Colonoscopy 2017 Total abdominal hysterectomy due to prolapsed uterus Bilateral cataract surgery. Left breast biopsies. SOCIAL HISTORY: Patient is a lifelong non-smoker, she denies any alcohol ingestion, she denies any drug use or abuse she is currently very active. FAMILY HISTORY: Father at age of 83 from stroke and he also had history of osteoporosis, mother at the age 89 from Alzheimer's dementia, patient has 2 brothers 68 and 61-year-old no health issues, patient has a son 39-year-old alive and healthy and 2 daughters 39 and 41 they are both healthy one of her daughter at the bedside. PHYSICAL EXAMINATION: General: 68-year-old female laying down in bed in no apparent distress. HEENT: Head is atraumatic, normocephalic, pupils were equal round reactive to light and recommendation, extraocular muscle movement were intact, sclera nonicteric, conjunctivae were pale, mucous membranes of the mouth are somewhat dry. Neck: Supple, no JVP, normal carotid upstroke bilaterally, no lymphadenopathy. Chest: Decreased breath sounds at the bases, few rhonchi, no expiratory wheezes, minimal chest wall tenderness and right chest wall tube. Heart: First heart sound is normal, second heart sounds normal there is no gallop or murmur. Abdomen: Soft, nontender, nondistended, positive bowel sounds. Extremities: There is no edema no calf tenderness DP +2 bilaterally. Neurologic examination: Patient is awake alert and oriented x3, cranial nerves II-12 appear grossly intact, muscle power were 5 out of 5 in upper extremities and 5 out of 5 in bilateral lower extremities, deep tendon reflexes normal bilaterally. ASSESSMENT AND PLAN: 1. Postoperative day #0 status post robotic assisted thoracoscopy with right middle lobe wedge resection x 2 and right upper lobe wedge resection x 1 with mediastinal lymph node dissection and intercostal nerve block. Patient was instructed to use the incentive spirometer to reduce the incidence of atel ectasis and healthcare associated pneumonia, chest x-ray reviewed showed tiny pneumothorax, chest tube in place, will continue to monitor the patient very closely continue current pain management as outlined by thoracic surgery, we will continue to monitor the patient very closely along with pulmonary medicine, increase activity level. 2. Well-differentiated lipidic adenocarcinoma in a patient who is non-smoker that is negative for PD-L1 and next generation sequencing. Under the care of Dr. Finn from hematology oncology, status post surgical intervention and the plan is to go for chemotherapy when she is healed well. 3. Mixed hyperlipidemia. Continue patient on atorvastatin 20 mg once every day as well as Zetia 10 mg once every day. 4. Hypothyroidism. Continue patient on Synthroid 50 mcg orally once every day. 5. Moderate obstructive sleep apnea continue patient CPAP as at home. 6. DVT prophylaxis. Early ambulation. Continue heparin 5000 units subcutaneously every 8 hours. 7. GI prophylaxis. Continue with Protonix 40 mg orally once every day.. 8. Thank you Dr. Estrella for allowing me to participate in the care of your patient I will be more than happy to follow the patient along with you. Past Medical History Past Medical History: Cancer, Hyperlipidemia, Sleep Apnea/CPAP/BIPAP, Thyroid Disorder Additional Past Medical History / Comment(s): Recent dx lung ca rt lung Nov 2023, hx osteoporosis,uses Indapamie as a potassium jose, uses C-PAP prn. History of Any Multi-Drug Resistant Organisms: None Reported Past Surgical History: Hysterectomy, Tubal Ligation Additional Past Surgical History / Comment(s): bi lat cataracts removed Past Anesthesia/Blood Transfusion Reactions: No Reported Reaction, Motion Sickness Smoking Status: Never smoker - Past Family History Father Family Medical History: CVA/TIA Medications and Allergies Home Medications Medication Instructions Recorded Confirmed Type Aspirin 81 mg PO QAM 11/17/23 01/13/24 History Ezetimibe [Zetia] 5 mg PO MOWEFR 11/17/23 01/13/24 History Indapamide [Lozol] 1.25 mg PO QAM 11/17/23 01/13/24 History Levothyroxine Sodium [Synthroid] 50 mcg PO QAM 11/17/23 01/13/24 History Multivit/Iron Sulf/Folic Acid 1 each PO QAM 11/17/23 01/13/24 History [Multivitamin with Iron] Prolia (Unknown Dose) 1 dose SQ Q180D 11/17/23 01/13/24 History Atorvastatin [Lipitor] 20 mg PO MOWEFR 01/10/24 01/13/24 History Allergies Allergy/AdvReac Type Severity Reaction Status Date / Time No Known Allergies Allergy Verified 01/13/24 06:15 Physical Exam Vitals: Vital Signs Temp Pulse Pulse Resp BP Pulse Ox 01/13/24 16:00 98.0 F 62 17 119/71 97 01/13/24 15:31 68 01/13/24 15:20 66 01/13/24 12:01 98 01/13/24 10:59 50 L 22 126/75 100 01/13/24 10:44 55 L 21 127/74 100 01/13/24 10:29 52 L 14 125/77 100 01/13/24 10:14 55 L 14 127/81 100 01/13/24 09:59 97.2 F L 54 L 14 126/73 100 01/13/24 07:38 66 18 127/71 99 01/13/24 06:16 97.0 F L 72 20 137/80 98 Intake and Output 01/13/24 01/13/24 01/13/24 06:59 14:59 22:59 Intake Total 200 1750 Output Total 360 Balance 200 1390 Intake: IV 200 1750 Output: Urine 350 Estimated Blood Loss 10 Other: Weight 65.5 kg Results Labs: Abnormal Lab Results - Last 24 Hours (Table) 01/03/24 Range/Units 10:21 Crossmatch See Detail
[2024-01-14] MEDS: LEVOTHYROXINE 50 MCG TAB PO SCH (05:53)
[2024-01-14] MEDS: PANTOPRAZOLE 40 MG TABLET PO SCH (05:53)
[2024-01-14] MEDS: ONDANSETRON 4 MG/2 ML VIAL IVP PRN (06:52)
[2024-01-14 07:44] LABS: Basophils % (A) 0 %; Eosinophils % (A) 0 %; HCT 36.9 % (34.0-46.0); HGB 12.4 gm/dL (11.4-16.0); Lymphocytes # (A) 0.9 k/uL (1.0-4.8); Lymphocytes % (A) 15 %; MCH 32.6 pg (25.0-35.0); MCHC 33.7 g/dL (31.0-37.0); MCV 96.7 fL (80.0-100.0); Mean Platelet Volume 8.2; Monocytes # (A) 0.3 k/uL (0-1.0); Monocytes % (A) 5 %; Neutrophils # (A) 4.9 k/uL (1.3-7.7); Neutrophils % (A) 79 %; Platelet Count 195 k/uL (150-450); RBC 3.81 m/uL (3.80-5.40); RDW 13.7 % (11.5-15.5); WBC 6.2 k/uL (3.8-10.6)
--- NOTE | 2024-01-14 07:55 | XR ---
EXAMINATION TYPE: XR chest 1V portable DATE OF EXAM: 01/14/2024 Comparison: 01/13/2024 Clinical History: 68-year-old female post lung surgery Findings: Heart normal size. Right-sided chest tube. Staple line right midlung and right apex relating to surgi chelita resection. Some mild patchy densities right upper and midlung likely postoperative change. No melly reciable pneumothorax. Subcutaneous emphysema along the right side of the chest. Blunting of the left costophrenic angle is new. Mild hyperinflation. Impression: 1. Postoperative changes on the right with chest tube. No appreciable pneumothorax. 2. Background COPD. New blunting of the left costophrenic angle could represent a trace pleural effus ion are some patchy atelectasis/infiltrate.
[2024-01-14 07:57] LABS: African American GFR (CKD) >90 (>60 ml/min/1.73 sqM); Anion Gap 6 mmol/L; Blood Urea Nitrogen 10 mg/dL (7-17); Calcium 7.7 mg/dL (8.4-10.2); Carbon Dioxide 24 mmol/L (22-30); Chloride 98 mmol/L (98-107); Glucose 123 mg/dL (74-99); Non-African American GFR(CKD) >90 (>60 ml/min/1.73 sqM); Potassium 3.8 mmol/L (3.5-5.1); Sodium 128 mmol/L (137-145)
[2024-01-14] MEDS: ATORVASTATIN 20 MG TAB PO SCH (08:49)
[2024-01-14] MEDS: SODIUM CHLORIDE TAB 1 GM TAB PO SCH (08:49)
[2024-01-14] MEDS: EZETIMIBE 10 MG TAB PO SCH (08:49)
[2024-01-14] MEDS: hydroCHLOROthiazide 12.5 MG CAP PO SCH (08:49)
[2024-01-14] MEDS: ASPIRIN 81 MG PO SCH (08:49)
[2024-01-14] MEDS: MULTIVITAMINS, THERA 1 EACH TAB PO SCH (08:50)
--- NOTE | 2024-01-14 09:25 | P.PN ---
Subjective Progress Note Date: 01/14/24 Principal diagnosis: Lepidic adenocarcinoma of the RML. History of hypothyroid, hyperlipidemia, osteoporosis, covid, lifetime non smoker. POD#1 bronchoscopy, right robotic assisted thorascopic surgery with wedge resection x 3, mediastinal lymph node dissection, intercostal nerve block - 2 levels The patient was seen and examined sitting up in recliner on the cardiac stepdown unit in no acute distress. She remains in sinus rhythm, denies significant pain, denies shortness of breath. Hemodynamically stable. Currently on room air with oxygen saturation in the mid 90s. Right pleural chest tube remains to continuous wall suction, no airleak present, it was placed to waterseal today. She is ambulatory in the room without difficulty. She did have urine residual last night, was unable to void and received straight catheterization x 1. Patient did complain of some nausea this morning with emesis, none since. No other new concerns. Objective - Vital Signs Vital signs: Vital Signs Temp 98.3 F 01/14/24 03:15 Pulse 68 01/14/24 03:15 Resp 20 01/14/24 03:15 BP 123/70 01/14/24 03:15 Pulse Ox 93 L 01/14/24 03:15 FiO2 Intake & Output 01/13/24 01/14/24 01/14/24 18:59 06:59 18:59 Intake Total 1990 970 Output Total 360 440 Balance 1630 530 Weight 75 kg Intake: IV 1750 Intake, IV Titration 250 Amount Dextrose 5%-0.45% NaCl 1, 250 000 ml @ 50 mls/hr IV . Q20H [facility] Rx#:[id number] Oral 240 720 Output: Chest Tube Drainage 140 Chest Tube Right Anterior 140 Chest Urine 350 300 Estimated Blood Loss 10 Other: # Voids 0 - Constitutional General appearance: Present: average body habitus, cooperative, no acute distress - EENT Eyes: Present: EOMI, PERRLA, dentition normal, normal appearance - Neck Neck: Present: normal ROM - Respiratory Respiratory: bilateral: rhonchi (scattered expiratory. upper lobe) - Cardiovascular Rhythm: regular Heart sounds: normal: S1, S2 - Gastrointestinal General gastrointestinal: Present: normal bowel sounds - Integumentary Integumentary: Present: normal, normal turgor - Musculoskeletal Musculoskeletal: Present: gait normal, strength equal bilaterally - Psychiatric Psychiatric: Present: A&O x's 3, appropriate affect, intact judgment & insight - Labs CBC & Chem 7: 01/14/24 07:23 01/14/24 07:23 Labs: Abnormal Lab Results - Last 24 Hours (Table) 01/03/24 01/14/24 01/14/24 Range/Units 10:21 07:23 07:23 Lymphocytes # 0.9 L (1.0-4.8) k/uL Sodium 128 L (137-145) mmol/L Creatinine 0.35 L (0.52-1.04) mg/dL Glucose 123 H (74-99) mg/dL Calcium 7.7 L (8.4-10.2) mg/dL Crossmatch See Detail - Imaging and Cardiology Chest x-ray: report reviewed, image reviewed Assessment and Plan Assessment: Lepidic adenocarcinoma of the RML, status post bronchoscopy, right robotic assisted thorascopic surgery with wedge resection x 3, mediastinal lymph node dissection, intercostal nerve block - 2 levels History of hypothyroid Hyperlipidemia Osteoporosis Covid Lifetime non smoker. Plan: Continue to maximize medical therapy with current medication regimen Encourage incentive spirometer 10 times every hour while awake, bronchodilators per pulmonology Increase activity, ambulate ad jay Pain control with ordered meds Chest tube placed to water seal without airleak, possible discontinuation this afternoon. Follow up with oncologist outpatient Time with Patient: Less than 30
--- NOTE | 2024-01-14 11:06 | P.PN ---
Subjective Progress Note Date: 01/14/24 Principal diagnosis: Lung cancer. Pulmonary consult dated January 13, 2024. 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 The patient had surgery today, by Dr. Estrella, and the procedures that were performed including bronchoscopy, robotically assisted wedge resection x 3, mediastinal lymph node dissection, and intercostal nerve block. Wedges were done of the right upper lobe, and the right middle lobe, and the various node stations were sampled including station [id number] and 10 on the right. The patient had a previous biopsy by my partner, which revealed the actual diagnosis. The patient is seen today in room 362. She is on room air. She is resting comfortably. She has got a D5.45 IV running at 50 cc an hour. She does have some pain at the surgical site. No labs as yet. Chest x-ray shows postsurgical changes with subcutaneous emphysema, and a 5% apical pneumothorax on the right. Progress note dated January 14, 2024. The patient is seen today in room 362. She is on room air. She is sitting in a chair next to her hospital bed. She is not receiving any IV fluids. Today is postoperative day #1. Right chest tube remains in place. There is a small leak, with deep breathing, and coughing. White count 6.2, hemoglobin 12.4, hematocrit 36.9, platelet count 195,000. Sodium 128, potassium 3.8, chlorides 98, CO2 24, BUN 10, creatinine 0.35. Glucose is 123. Calcium is 7.7. Chest x- ray reveals a right-sided chest tube, and blunting of the left costophrenic angle. Objective - Vital Signs Vital signs: Vital Signs Temp 98.1 F 01/14/24 08:55 Pulse 72 01/14/24 09:00 Resp 20 01/14/24 08:55 BP 121/71 01/14/24 08:55 Pulse Ox 99 01/14/24 08:55 FiO2 Intake & Output 01/13/24 01/14/24 01/14/24 18:59 06:59 18:59 Intake Total 1989 970 380 Output Total 360 440 Balance 1630 530 380 Weight 75 kg Intake: IV 1750 20 Invasive Line 2 10 Invasive Line 3 10 Intake, IV Titration 250 Amount Dextrose 5%-0.45% NaCl 1, 250 000 ml @ 50 mls/hr IV . Q20H [facility] Rx#:[id number] Oral 240 720 360 Output: Chest Tube Drainage 140 Chest Tube Right Anterior 140 Chest Urine 350 300 Estimated Blood Loss 10 Other: # Voids 0 - Exam No acute distress, oriented 3. Currently on room air. HEENT examination is grossly unremarkable. Mucous membranes are moist. No oral lesions. Neck supple. Full range of motion. No adenopathy thyromegaly or neck vein distention. Cardiovascular examination reveals regular rhythm rate. S1-S2 normal. No S3 or S4. No discernible murmur noted. Heart rate 72 bpm. Lungs reveal diminished breath sounds on the right. No adventitious lung sounds. Left lung sounds are clear as well. Room air saturation is 99%. Chest tube noted on the right. Abdomen soft bowel sounds are heard. No masses or tenderness. Extremities are intact. No cyanosis clubbing or edema. Skin is without rash or lesion. Neurologic examination is brief but nonfocal. - Labs CBC & Chem 7: 01/14/24 07:23 01/14/24 07:23 Labs: Abnormal Lab Results - Last 24 Hours (Table) 01/14/24 01/14/24 Range/Units 07:23 07:23 Lymphocytes # 0.9 L (1.0-4.8) k/uL Sodium 128 L (137-145) mmol/L Creatinine 0.35 L (0.52-1.04) mg/dL Glucose 123 H (74-99) mg/dL Calcium 7.7 L (8.4-10.2) mg/dL Assessment and Plan Assessment: Postop day #1, robotically assisted wedge resection, right middle lobe x 2, right upper lobe x 1. In addition, the patient had mediastinal lymph node dissection, bronchoscopy, and intercostal nerve block. Recent diagnosis of lipidic adenocarcinoma, involving the right middle lobe. History of hyperlipidemia. History of hypertension. History of osteoporosis. Lifelong non-smoker. Plan: Plan dated January 13, 2024. The patient is seen today in room 362. Family members at the bedside. The patient is currently on room air. The patient is on dextrose with half-normal saline at 50 cc an hour. The patient has an incentive spirometer at the bedside. We show her how to use it, and asked her to use it on a frequent basis. We also recommend deep breathing, coughing, clearing of secretions. Postsurgical changes are seen on the x-ray. There is a tiny apical pneumothorax. Chest tube was noted. Will continue to follow the patient, and make recommendations were appropriate. Plan dated January 14, 2024. The patient is progressing very nicely. She has a small air leak, from the right chest tube. Labs, x-rays, and medications are reviewed. Other than for some pain at the surgical site, she is doing relatively well. She is on room air. We will continue to follow make recommendations along the way. Pathology is pending. Additional recommendations and suggestions are forthcoming. Time with Patient: Less than 30
[2024-01-14] MEDS ORDERED: MAGNESIUM HYDROXIDE 2,400 MG/30 ML CUP PO PRN (12:18)
[2024-01-14] MEDS ORDERED: bisacodyL 10 MG SUPP RECTAL PRN (12:18)
--- NOTE | 2024-01-14 13:43 | P.PN ---
Subjective Progress Note Date: 01/14/24 Medical management Requesting physician: Truong Estrella - Chief Complaint Robotic assisted thoracoscopic wedge resection x 3 - History of Present Illness HISTORY OF PRESENT ILLNESS: This is a 68-year-old female patient of mine with a previous medical history significant for mixed hyperlipidemia, hypothyroidism, history of osteoporosis without pathological fracture, history of moderate obstructive sleep apnea, patient is a lifelong non-smoker, on surveillance CT of the coronary arteries she was found to have a pulmonary nodule this is after she developed to have a significant COVID infection this was started back in July and 2021, where the CT scan of the chest showed right middle lobe nodule/mass with right upper lobe consolidation, she was treated with multiple courses of oral antibiotic and steroid, she was referred to pulmonary medicine, and the patient was feeling fine at that time, up till recently when she came for her wellness visit and she was sent for a surveillance CT scan of the chest with contrast that showed an enlargement of the right middle lobe mass as well as right upper lobe infiltrate she was sent to Dr. 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 Finn and after appropriate staining the biopsy was sent to PD-L1 and next generation sequencing it was recommended at that time for the patient to go for surgical intervention followed by chemotherapy therefore the patient was referred to Dr. Estrella she underwent robotic assisted thoracoscopic right middle lobe wedge resection x 2 and right upper lobe wedge resection x 1 along with mediastinal lymph node dissection as well as intercostal nerve block, and we were asked to see the patient for postoperative medical management. Patient is lying down in bed in no apparent distress, she complains of pain in the right side, her x-ray showed minimal tiny apical pneumothorax, she does appear to have a chest tube in place, that appears to be sealed very well she is using incentive spirometer and she is not using any oxygen at this point in time, her oxygen saturation on room air was 97%. 01/14: Patient is found sitting in a chair. No new concerns. Chest pain is controlled. She remains with a right-sided chest tube in place. Patient has been afebrile, heart rate 67, blood pressure 125/76, pulse ox 90% on room air. Repeat blood work today reveals CBC within normal limits, sodium 128, potassium 3.8, creatinine 0.34. Pathology report is pending. Chest x-ray today reveals postop changes. Background of COPD. No appreciable pneumothorax. Left costochondral angle blunting could represent trace pleural effusion, patchy atelectasis or infiltrate. She is reaching > 100 ml on IS. Patient is expecting discharge home tomorrow. REVIEW OF SYSTEMS: Constitutional: No documented fever, no chills, no night sweats. No weight change. No weakness, fatigue or lethargy. No daytime sleepiness. EENT: No headache. No blurred vision or double vision, no loss of vision. No loss of Hearing, no ringing in the ears, no dizziness. No nasal drainage or congestion. No epistaxis. No sore throat. Lungs: No shortness of breath, occasional cough, no sputum production. No wheezing. Reports dyspnea with activity. Cardiovascular: No chest pain, no lower extremity edema. No palpitations. No paroxysmal nocturnal dyspnea. No orthopnea. No lightheadedness or dizziness. No syncopal episodes. Abdominal: Reports no abdominal pain. No nausea, vomiting. No diarrhea. No constipation. No bloody or tarry stools reports loss of appetite. Genitourinary: No dysuria, increased frequency, urgency. No urinary retention. Musculoskeletal: No myalgias. No muscle weakness, no gait dysfunction, no frequent falls. No back pain. No neck pain. Integumentary: , no lesions. No rash or pruritus. No unusual bruising. No change in hair or nails. Neurologic: No aphasia. No facial droop. No change in mentation. No head injury. No headache. No paralysis. No paresthesia. Psychiatric: No depression. No anxiety. No mood swings. Endocrine: No abnormal blood sugars. No weight change. PHYSICAL EXAMINATION: General: 68-year-old female laying down in bed in no apparent distress. HEENT: Head is atraumatic, normocephalic, pupils were equal round reactive to light and recommendation, extraocular muscle movement were intact, sclera nonicteric, conjunctivae were pale, mucous membranes of the mouth are somewhat dry. Neck: Supple, no JVP, normal carotid upstroke bilaterally, no lymphadenopathy. Chest: Decreased breath sounds at the bases, few rhonchi, no expiratory wheezes, minimal chest wall tenderness and right chest wall tube. Heart: First heart sound is normal, second heart sounds normal there is no gallop or murmur. Abdomen: Soft, nontender, nondistended, positive bowel sounds. Extremities: There is no edema no calf tenderness DP +2 bilaterally. Neurologic examination: Patient is awake alert and oriented x3, cranial nerves II-12 appear grossly intact, muscle power were 5 out of 5 in upper extremities and 5 out of 5 in bilateral lower extremities, deep tendon reflexes normal bilaterally. ASSESSMENT AND PLAN: 1. Postoperative day #1 status post robotic assisted thoracoscopy with right mi ddle lobe wedge resection x 2 and right upper lobe wedge resection x 1 with mediastinal lymph node dissection and intercostal nerve block. Patient was instructed to use the incentive spirometer to reduce the incidence of atelectasis and healthcare associated pneumonia, chest x-ray reviewed, chest t ube in place, will continue to monitor the patient very closely continue current pain management as outlined by thoracic surgery, we will continue to monitor the patient very closely along with pulmonary medicine, increase activity level. 2. Well-differentiated lipidic adenocarcinoma in a patient who is non-smoker that is negative for PD-L1 and next generation sequencing. Under the care of Dr. Finn from hematology oncology, status post surgical intervention and the plan is to go for chemotherapy when she is healed well. 3. Mixed hyperlipidemia. Continue patient on atorvastatin 20 mg once every day as well as Zetia 10 mg once every day. 4. Hypothyroidism. Continue patient on Synthroid 50 mcg orally once every day. 5. Moderate obstructive sleep apnea continue patient CPAP as at home. 6. DVT prophylaxis. Early ambulation. Continue heparin 5000 units subcutaneously every 8 hours. 7. GI prophylaxis. Continue with Protonix 40 mg orally once every day.. 8. Thank you Dr. Estrella for allowing me to participate in the care of your patient I will be more than happy to follow the patient along with you. Impression and plan of care have been directed as dictated by the signing physician. Vida Condon nurse practitioner acting as scribe for signing physician. Objective - Vital Signs Vital signs: Vital Signs Temp 98.1 F 01/14/24 08:55 Pulse 72 01/14/24 09:00 Resp 20 01/14/24 08:55 BP 121/71 01/14/24 08:55 Pulse Ox 99 01/14/24 08:55 FiO2 Intake & Output 01/13/24 01/14/24 01/14/24 18:59 06:59 18:59 Intake Total 1989 970 380 Output Total 360 440 Balance 1630 530 380 Weight 75 kg Intake: IV 1750 20 Invasive Line 2 10 Invasive Line 3 10 Intake, IV Titration 250 Amount Dextrose 5%-0.45% NaCl 1, 250 000 ml @ 50 mls/hr IV . Q20H [facility] Rx#:[id number] Oral 240 720 360 Output: Chest Tube Drainage 140 Chest Tube Right Anterior 140 Chest Urine 350 300 Estimated Blood Loss 10 Other: # Voids 0 - Labs CBC & Chem 7: 01/14/24 07:23 01/14/24 07:23 Labs: Abnormal Lab Results - Last 24 Hours (Table) 01/14/24 01/14/24 Range/Units 07:23 07:23 Lymphocytes # 0.9 L (1.0-4.8) k/uL Sodium 128 L (137-145) mmol/L Creatinine 0.35 L (0.52-1.04) mg/dL Glucose 123 H (74-99) mg/dL Calcium 7.7 L (8.4-10.2) mg/dL
[2024-01-14] MEDS: SENNOSIDES-DOCUSATE SODIUM 1 EACH TAB PO SCH (20:12)
[2024-01-15 03:37] VITALS: RESP 16
--- NOTE | 2024-01-15 06:48 | XR ---
EXAMINATION TYPE: XR chest 2V DATE OF EXAM: 01/15/2024 6:28 AM CLINICAL INDICATION:Female, 68 years old with history of post lung resection; [facility] COMPARISON: 01/14/2024 and before TECHNIQUE: XR chest 2V. Frontal and lateral views of the chest.. FINDINGS: Lines/Tubes/Devices: The right chest tube has been removed. EKG leads overlie the chest. Heart/mediastinum: Heart size is normal. Mediastinum appears stable. Pulmonary vascularity: Not increased, Lungs/Pleura: Increased right perihilar and lower lobe opacities may represent atelectasis or infiltr ate. Approximately 2.8 cm nodular density on the right over the mid to upper lung zone again noted no w appears better defined. No sizable pneumothorax seen but a tiny residual cannot be excluded. There appear to be small pleural effusions which appear unchanged. Mild left basilar atelectasis or infiltr ate. Musculoskeletal: Osseous structures appear grossly unchanged. Small amount of soft tissue emphysema in the right chest wall greatest in the supraclavicular region, unchanged. Other findings: None. IMPRESSION: 1. Right chest tube has been removed. No sizable pneumothorax demonstrated. 2. Increased right perihilar and lower lobe opacities may represent atelectasis or infiltrate. 3. Approximately 2.8 cm nodular density on the right over the mid to upper lung zone. Likely conside rations include infection and neoplasm. Appropriate follow-up advised. 4. Likely small pleural effusions which appear unchanged. Mild left basilar atelectasis or infiltrat e, similar to previous. 5. Stable small amount of soft tissue emphysema in the right chest wall greatest in the supraclavicu lar region.
--- NOTE | 2024-01-15 07:29 | P.DS ---
Providers Date of admission: 01/13/24 05:48 Expected date of discharge: 01/15/24 Attending physician: Truong Estrella MD Consults: 01/13/24 11:28 Consult Physician Routine Consulting Provider: Kyle Paris Consult Reason/Comments: post lung wedge; lung cancer Do you want consulting provider notified?: Yes 01/13/24 13:21 Consult Physician Routine Consulting Provider: Candie Obregon Consult Reason/Comments: known to you Do you want consulting provider notified?: Yes Primary care physician: Candie Obregon Hospital Course: FINAL DIAGNOSIS: Lepidic adenocarcinoma of the RML History of hypothyroid Hyperlipidemia Osteoporosis Covid Lifetime non smoker PRINCIPAL PROCEDURE: Bronchoscopy Right robotic assisted thorascopic surgery with wedge resection x 3 Mediastinal lymph node dissection Intercostal nerve block - 2 levels HISTORY OF PRESENT ILLNESS: This is a 68-year-old female who follows outpatient with Dr. Obregon for primary care, Dr. Huertas for pulmonology, and Dr. Finn for oncology. She is a lifelong non-smoker who had COVID last year and had a chest x-ray which revealed a right middle lobe nodule. Subsequently she had a CT scan and PET scan revealing 2.5-3 cm mass in the right middle lobe that was mildly FDG avid. She underwent endobronchial ultrasound with transbronchial needle biopsies which revealed a well-differentiated adenocarcinoma with lipidic pat tern. Note she also had a 1.2 cm opacity in the right upper lobe which was central with minimal FDG avidity. The patient was referred to Dr. Estrella from cardiothoracic surgery. She was recommended to undergo robotic assisted thoracoscopic surgical resection. The usual perioperative course was discussed in detail with the patient and her family, all risks and benefits were explained, all questions were answered, and consent was obtained to proceed with surgery. The patient was scheduled for surgery at the earliest possible date. HOSPITAL COURSE: The patient was brought to the hospital on 01/13/24, taken to the preoperative area, prepared in the usual fashion, and subsequently taken to the operating room where Dr. Estrella performed robotic assisted thoracoscopic wedge resection and mediastinal lymph node dissection. Upon completion of surgery the patient was extubated and taken to the recovery room for further hemodynamic monitoring. She was eventually admitted to 3 S. cardiac stepdown unit for further monitoring. The day after surgery there was no airleak in her chest tube, chest x-ray was stable, and her right-sided pleural chest tube was discontinued without incident. Follow-up chest x-ray the next morning was stable. Her oxygen was titrated down, she was tolerating oral diet, her pain was controlled, and she was ready to be discharged to home on postoperative day #2. She received written and verbal instruction regarding her medications, activity restrictions, signs and symptoms requiring physician notification, and follow-up appointments. Patient Condition at Discharge: Stable Plan - Discharge Summary Discharge Rx Participant: No New Discharge Prescriptions: New Sennosides-Docusate Sodium [Senokot-S] 2 each PO BID PRN tab PRN Reason: Constipation Acetaminophen Tab [Tylenol] 650 mg PO Q4HR PRN tab PRN Reason: Mild To Moderate Pain (1 - 6) Continue Levothyroxine Sodium [Synthroid] 50 mcg PO QAM Indapamide [Lozol] 1.25 mg PO QAM Aspirin 81 mg PO QAM Prolia (Unknown Dose) 1 dose SQ Q180D Multivit/Iron Sulf/Folic Acid [Multivitamin with Iron] 1 each PO QAM Ezetimibe [Zetia] 5 mg PO MOWEFR Atorvastatin [Lipitor] 20 mg PO MOWEFR Discharge Medication List Aspirin 81 mg PO QAM 11/17/23 [History] Ezetimibe [Zetia] 5 mg PO MOWEFR 11/17/23 [History] Indapamide [Lozol] 1.25 mg PO QAM 11/17/23 [History] Levothyroxine Sodium [Synthroid] 50 mcg PO QAM 11/17/23 [History] Multivit/Iron Sulf/Folic Acid [Multivitamin with Iron] 1 each PO QAM 11/17/23 [History] Prolia (Unknown Dose) 1 dose SQ Q180D 11/17/23 [History] Atorvastatin [Lipitor] 20 mg PO MOWEFR 01/10/24 [History] Acetaminophen Tab [Tylenol] 650 mg PO Q4HR PRN tab 01/15/24 [Rx] Sennosides-Docusate Sodium [Senokot-S] 2 each PO BID PRN tab 01/15/24 [Rx] Follow up Appointment(s)/Referral(s): Candie Obregon MD [Primary Care Provider] - As Needed (Patient would like to make her own follow up appt) Truong Estrella MD [STAFF PHYSICIAN] - 01/28/24 10:15 am Mayur Huertas MD [STAFF PHYSICIAN] - 01/31/24 2:15 pm Jessica Finn MD [STAFF PHYSICIAN] - As Needed Activity/Diet/Wound Care/Special Instructions: DISCHARGE INSTRUCTIONS: 1. No driving for 2 weeks, or until physician gives their ok. 2. No lifting, pushing, or pulling more than 10 pounds for 2 weeks. The physician will advise of any restriction changes. 3. Continue pain control per as needed orders. Alternate acetaminophen (Tylenol) and ibuprofen (Motrin/Advil) for pain. 4. Continue with incentive spirometry and splinting until otherwise directed by the physician. 5. Leave chest tube dressing for 48 hours. After that, remove all dressings and shower daily. 6. Routine incision care. No powders, lotions, ointments on incisions. 7. Please call surgeon/LATHE MACHINE OPERATOR for temp greater than 101 F or purulent drainage from incisions. Discharge Disposition: HOME SELF-CARE
[2024-01-15 08:21] LABS: HGB 12.4 gm/dL (11.4-16.0); MCH 31.7 pg (25.0-35.0); MCHC 32.7 g/dL (31.0-37.0); Mean Platelet Volume 8.6; Platelet Count 194 k/uL (150-450); RBC 3.92 m/uL (3.80-5.40); RDW 14.1 % (11.5-15.5); WBC 7.3 k/uL (3.8-10.6)
[2024-01-15 08:31] VITALS: BP 116/63; PULSE 96; TEMP 98.5
[2024-01-15 08:39] LABS: African American GFR (CKD) >90 (>60 ml/min/1.73 sqM); Anion Gap 3 mmol/L; Blood Urea Nitrogen 8 mg/dL (7-17); Calcium 8.3 mg/dL (8.4-10.2); Carbon Dioxide 30 mmol/L (22-30); Chloride 101 mmol/L (98-107); Glucose 141 mg/dL (74-99); Non-African American GFR(CKD) >90 (>60 ml/min/1.73 sqM); Potassium 4.2 mmol/L (3.5-5.1); Sodium 134 mmol/L (137-145)
--- NOTE | 2024-01-18 17:32 | CDI ---
Documentation Clarification Form Date: 01/18/2024 05:15:36 PM From: Ksenia Kwan Phone: Admit Date: 01/13/2024 05:48:00 AM Patient Name: Vanessa Gonzalez Visit Number: [id number] Discharge Date: 01/15/2024 09:01:00 AM ATTENTION: The Clinical Documentation Specialists (CDI) and [facility] Coding Staff appreciate your assistance in clarifying documentation. Please respond to the clarification below the line at the bottom and electronically sign. The CDI & [facility] Coding staff will review the response and follow-up if needed. Please note: Queries are made part of the Legal Health Record. If you have any questions, please contact the author of this message via ITS. Dr. Truong Estrella Postsurgical changes withsubcutaneous emphysema, apical pneumothorax, and smallair leak are documented per Progress Note 01/14. Additional clarification regarding subcutaneous emphysema, pneumothorax and air leak is requested. Patients Admitting Diagnosis: LepidicAdenocarcinomaof the RML Post-Operative Diagnosis: LepidicAdenocarcinomaof the RML Procedure performed: RML wedge x 2, RUL wedge, LN Stations 4, 7, 8,9,10 History/Risk Factors: 68yo F, Lepidicadenocarcinomaof the RML, hypothyroid, HLD, COPD, MARCELINO, Osteoporosis, Hx Covid, lifetimenonsmoker Clinical Indicators: CXR- Rt-sidedCT withsubcutaneous emphysema. Tiny Rt apical pneumothoraxmeasuring less than 5%. There is postsurgical change and increased densityin the Rt per hilum whichmay bepostoperative. Lt apical pleural thickening. Treatment: The patient is progressing very nicely. She has a smallair leak, from Rtchest tube. Labs,x-rays, and medications are reviewed. Other than for somepainat the surgical site, she is doing relatively well. She is on room air. Please clarify if subcutaneous emphysema, apical pneumothorax and air leak are complications of the surgical procedure? [ x ] Yes [ ] No [ ] Other, please specify [ ] Unable to determine (Template Last Revised: January 2021) MTDD
[2024-02-04] MEDS ORDERED: PROLIA SQ SCH (12:00)
== END 2024-01-15 09:01 | disposition home or self-care (01) | DRG 167 ==
LOC: 2ORMAIN 05:48 → 3SCARD 10:48
PROVIDERS: ADMIT Thoracic Surgery (Cardiothoracic Vascular Surgery); ATTEND Thoracic Surgery (Cardiothoracic Vascular Surgery)
PROC: 3E0T3BZ Introduction of Anesthetic Agent into Peripheral Nerves and Plexi, Percutaneous Approach (ICD-10-PCS; 2024-01-13)
PROC: 8E0W8CZ Robotic Assisted Procedure of Trunk Region, Via Natural or Artificial Opening Endoscopic (ICD-10-PCS; 2024-01-13)
PROC: 0BBD8ZZ Excision of Right Middle Lung Lobe, Via Natural or Artificial Opening Endoscopic (ICD-10-PCS; principal; 2024-01-13 07:30)
PROC: 07B74ZX Excision of Thorax Lymphatic, Percutaneous Endoscopic Approach, Diagnostic (ICD-10-PCS; 2024-01-13 07:30)
DX: C34.2 Malignant neoplasm of middle lobe, bronchus or lung (principal); J93.83 Other pneumothorax; J98.2 Interstitial emphysema; J44.9 Chronic obstructive pulmonary disease, unspecified; E03.9 Hypothyroidism, unspecified; I10 Essential (primary) hypertension; M81.0 Age-related osteoporosis without current pathological fracture; E78.2 Mixed hyperlipidemia; G47.33 Obstructive sleep apnea (adult) (pediatric); Z79.82 Long term (current) use of aspirin; Z79.890 Hormone replacement therapy; Z86.16 Personal history of COVID-19; Z79.899 Other long term (current) drug therapy
CPT/HCPCS: 64999; 71045; 71046; 80048; 85025; 85027; 86850; 86900; 86901; 86920; 88305; 88307; 88313; 88331; 94640; 94760

== ENCOUNTER → 2024-02-21 | Outpatient (CLI) | payer MEDICARE ==
[2024-02-21 17:26] LABS: ALT 29 U/L (8-44); AST 26 U/L (13-35); Albumin 4.5 g/dL (3.8-4.9); Albumin/Globulin Ratio 2.14 Ratio (1.60-3.17); Alkaline Phosphatase 54 U/L (41-126); BUN/Creat Ratio 31.83 Ratio (12.00-20.00); Blood Urea Nitrogen 19.1 mg/dL (9.0-27.0); Calcium 9.9 mg/dL (8.7-10.3); Carbon Dioxide 28.9 mmol/L (21.6-31.8); Chloride 99 mmol/L (96-109); Globulin 2.1 g/dL (1.6-3.3); Glucose 108 mg/dL (70-110); Potassium 4.2 mmol/L (3.5-5.5); Sodium 139 mmol/L (135-145); Total Bilirubin 0.2 mg/dL (0.3-1.2); Total Protein 6.6 g/dL (6.2-8.2)
== END | disposition home or self-care (01) ==
LOC: LABWHC1 12:29
PROVIDERS: ATTEND Internal Medicine
DX: M81.0 Age-related osteoporosis without current pathological fracture (principal); E55.9 Vitamin D deficiency, unspecified
CPT/HCPCS: 36415; 80053; 82306

== ENCOUNTER → 2024-05-03 | Outpatient (CLI) | payer MEDICARE ==
--- NOTE | 2024-05-03 14:08 | MM ---
Reason for Exam: Follow-up at short interval from prior study. Last mammogram was performed 2 year(s) and 1 month(s) ago. Patient History: Menarche at age 15. First Full-Term at age 20. Postmenopausal. Patient has history of breast feeding. Patient used Estrogen for 5 years. Benign Excisional Biopsy on the right side. 2007, Benign Excisional Biopsy on the left side. Risk Values: Lianet 5 year model risk: 2.1%. NCI Lifetime model risk: 6.8%. Prior Study Comparison: 10/10/2014 Screening Mammogram, [facility]. 08/23/2018 Bilateral Screening Mammogram, [facility]. 11/06/2019 Bilateral Screening Mammogram, [facility]. 04/15/2022 Bilateral MG 3D screening mammo w/cad, [facility]. Tissue Density: Right: The breasts are heterogeneously dense, which may obscure small masses. Findings: Analyzed By CAD. Retroareolar nodular density not well seen as when compared to prior study. Ultrasound however is recommended. Overall Assessment: Incomplete: need additional imaging evaluation, BI-RAD 0 Management: Diagnostic Breast Ultrasound of the right breast. . Results were given to the patient verbally at the time of exam. Patient should continue monthly self-breast exams. A clinical breast exam by your physician is recommended on an annual basis. This exam should not preclude additional follow-up of suspicious palpable abnormalities. Note on Lianet scores and lifetime risk: 1. A Lianet score greater than 3% is considered moderate risk. If this is the case, consider specialist referral to assess eligibility for a risk reducing agent. 2. If overall lifetime risk for the development of breast cancer is 20% or higher, the patient may qualify for future screening with alternating mammogram and breast MRI. Electronically signed and approved by: Ricky Allan M.D. Radiologis
--- NOTE | 2024-05-03 14:23 | USB ---
Reason for Exam: Follow-up at short interval from prior study. Patient History: Menarche at age 15. First Full-Term at age 20. Postmenopausal. Patient has history of breast feeding. Patient used Estrogen for 5 years. Benign Excisional Biopsy on the right side. 2008, Benign Excisional Biopsy on the left side. Risk Values: Lianet 5 year model risk: 2.1%. NCI Lifetime model risk: 6.8%. Technique: Method: Targeted. Prior Study Comparison: 08/23/2018 Bilateral Screening Mammogram, [facility]. 11/06/2019 Bilateral Screening Mammogram, [facility]. 04/15/2022 Bilateral MG 3D screening mammo w/cad, [facility]. Findings: The retroareolar of the right breast was scanned. Mildly prominent ducts noted retroareolar region without solid mass. Overall Assessment: Benign, BI-RAD 2 Management: Screening Mammogram of both breasts in 6 months. A clinical breast exam by your physician is recommended on an annual basis and results should be correlated with mammographic findings. This exam should not preclude additional follow-up of suspicious palpable abnormalities. Results were given to the patient verbally at the time of exam. Electronically signed and approved by: Ricky Allan M.D. Radiologis
== END | disposition home or self-care (01) ==
LOC: RADMAMWWP 12:59
PROVIDERS: ATTEND Surgery
DX: R92.331 Mammographic heterogeneous density, right breast (principal); R92.8 Other abnormal and inconclusive findings on diagnostic imaging of breast; Z78.0 Asymptomatic menopausal state
CPT/HCPCS: 77065; 76642; G0279; 77061

== ENCOUNTER → 2024-06-15 | Outpatient (CLI) | payer MEDICARE ==
--- NOTE | 2024-06-20 13:22 | PE ---
EXAMINATION TYPE: PET CT fusion skull to thigh DATE OF EXAM: 06/15/2024 CLINICAL INDICATION:Female, 69 years old with history of C34.2 LUNG CANCER; TECHNIQUE: Following the intravenous administration of 11.5 mCi of F-18 FDG, whole body images are performed from the skull base to the midthigh. Images are reviewed on the computer in the coronal, a xial, and sagittal planes. Reconstructed rotating images are created on independent workstation and reviewed on the computer. A non-contrast CT is performed in conjunction with the PET scan. Glucose level 110 mg/dL CT DLP: 315 mGycm, Automated exposure control for dose reduction was used. COMPARISON: CT 11/25/2023, PET/CT 10/07/2023., MRI: None FINDINGS: Mediastinal SUV mean is 2.1. Hepatic parenchyma SUV mean is 2.9. SKULL BASE AND NECK: No suspicious radiotracer activity. CHEST, MEDIASTINUM, AND HILAR REGION: * Precarinal FDG avid lymph node max SUV 6.4 previously 2.8. * Right perihilar lymph node anteriorly max SUV 2.6, previously 2.8. * Left subpectoral lymph nodes max SUV 2.3 measuring up to 5 mm in short axis. Previously no FDG act ivity above background. * Left axillary lymph node max SUV 2.4 previously 0.9. Measuring 9 mm in short axis. * 10L lymph node max SUV 3.6, previously 2.5. * Surgical suture in posttreatment changes to the right lung with consolidation which max SUV postsu rgical change 2.3 along the suture. More superiorly there is mild uptake within the subsolid nodule M ax SUV 1.7 series 3 image 84 measuring 9 mm. ABDOMEN AND PELVIS: No suspicious radiotracer activity. MUSCULOSKELETAL STRUCTURES: No suspicious radiotracer activity. OTHER CT: Bilaterally aphakia. Atherosclerosis of the arterial vasculature is minimal. Severe atheros clerosis of the coronary arteries. Bilateral breast calcifications. Moderate amount stool throughout the colon. Fat-containing umbilical hernia is tiny. IMPRESSION: 1. Increasing mediastinal size and FDG activity of a precarinal lymph node concerning for neoplastic process. 2. Right upper lobe groundglass nodule with mild uptake possibly due to infectious/inflammatory proc ess. Attention follow-up imaging. 3. Interval postsurgical change with mild uptake along the suture margin. This finding could be post surgical change. Attention follow-up imaging. 4. Increasing metabolic activity within the left subpectoral and left axillary lymph nodes which are indeterminate at this time attention on follow-up imaging. Findings favored to be reactive.
== END | disposition home or self-care (01) ==
LOC: RADPETMAIN 07:50
PROVIDERS: ATTEND Internal Medicine Hematology & Oncology
DX: C34.2 Malignant neoplasm of middle lobe, bronchus or lung (principal); E03.9 Hypothyroidism, unspecified; D70.2 Other drug-induced agranulocytosis; E78.5 Hyperlipidemia, unspecified; R91.1 Solitary pulmonary nodule; R59.0 Localized enlarged lymph nodes
CPT/HCPCS: 78815; A9552

== ENCOUNTER → 2024-06-29 | Outpatient (CLI) | payer MEDICARE | END | disposition home or self-care (01) | LOC: LABPRL 10:10 | PROVIDERS: ATTEND Internal Medicine | DX: E78.2 Mixed hyperlipidemia | CPT/HCPCS: 80053; 80061; 82306; 83036; 84443; 85025 ==

== ENCOUNTER → 2024-07-31 | Outpatient (CLI) | payer MEDICARE ==
[2024-07-31 14:14] LABS: African American GFR (CKD) >90 (>60 ml/min/1.73 sqM); Blood Urea Nitrogen 15 mg/dL (7-17); Non-African American GFR(CKD) >90 (>60 ml/min/1.73 sqM)
--- NOTE | 2024-07-31 14:56 | CT ---
EXAMINATION TYPE: CT chest w con DATE OF EXAM: 07/31/2024 COMPARISON: 08/06/2023 HISTORY: LUNG CANCER CT DLP: 574 mGycm Automated exposure control for dose reduction was used. TECHNIQUE: CT scan of the chest is performed with IV Contrast, patient injected with 100ml mL of Isovue 300. GA P Images are created on CT scanner and reviewed. 3D reconstructed images are created on an [employer] workstation and reviewed. FINDINGS: There are postsurgical changes of partial right lung lobectomy with resection of the previously descr ibed right middle lobe mass. There is surgical sutures and dystrophic calcification in the minor fissure. Groundglass opacity in the right upper lobe remains stable at approximately 11 mm. 3 additional groun dglass opacities have developed in the right perihilar region in the interval, the largest of which measures 22 mm and the other 2 opacities measure approximate 18 mm. The there has been interval development of a small pleural effusion. The findings are suspicious for recurrent neoplasm. The left lung remains clear. There is no definite mediastinal, hilar or axillary adenopathy. There are no pulmonary emboli. Limited scanning through the upper abdomen reveals no gross abnormality. No focal osseous lesions are seen. IMPRESSION: 1. Successful partial right middle lobe lobectomy for resection of the previously described right dilshad g mass. 2. Multiple groundglass opacities, 3 of which have developed in the interval along with development of a small right pleural effusion.. The findings are suspicious for recurrent neoplasm.
== END | disposition home or self-care (01) ==
LOC: RADCTMAIN 13:30
PROVIDERS: ATTEND Internal Medicine Hematology & Oncology
DX: C34.2 Malignant neoplasm of middle lobe, bronchus or lung (principal); D70.2 Other drug-induced agranulocytosis; E03.9 Hypothyroidism, unspecified; J90 Pleural effusion, not elsewhere classified; R91.8 Other nonspecific abnormal finding of lung field; R11.0 Nausea
CPT/HCPCS: 36415; 71260; 82565; 84520

== ENCOUNTER → 2024-09-26 | Outpatient (CLI) | payer MEDICARE ==
[2024-09-26 11:34] LABS: African American GFR (CKD) >90 (>60 ml/min/1.73 sqM); Blood Urea Nitrogen 17 mg/dL (7-17); Non-African American GFR(CKD) >90 (>60 ml/min/1.73 sqM)
--- NOTE | 2024-09-26 13:03 | CT ---
EXAMINATION TYPE: CT chest w con CT DLP: 243.80 mGycm, Automated exposure control for dose reduction was used. DATE OF EXAM: 09/26/2024 12:04 PM COMPARISON: CT chest 08/10/2024, 11/25/2023, PET/CT 06/15/2024, 10/07/2023 CLINICAL INDICATION:Female, 69 years old with history of C34.2 MALIGNANT NEOPLASM OF MIDDLE LOBE, BRO NCHUS; PHH, lung cancer, post right lung sx in dec TECHNIQUE: Multiple axial images were obtained through the chest following the administration of 100 cc of Isovue 300. . Coronal and sagittal reformats reviewed. FINDINGS: LUNGS/ PLEURA: Mild biapical pleural-parenchymal scarring. Postsurgical changes identified within the right upper and mid lung with suture material and scarring. Residual soft tissue thickening identif ied within the right suprahilar region. Couple of new subcentimeter groundglass densities within the posterior right upper lung. Additional processing regions of groundglass opacity within the right per ihilar region appear still present. Elevation right hemidiaphragm from volume loss. Trace right pleur al effusion. No pneumothorax. AIRWAY: Patent and unremarkable.. HEART: Size within normal limits. No pericardial effusion. Moderate coronary arterial calcifications. MEDIASTINUM: No enlarged lymph nodes greater than 1 cm short axis. VASCULATURE: No aortic aneurysm. MUSCULOSKELETAL: No acute osseous abnormalities. No aggressive osseous lesion. Mild multilevel degene rative disc disease. Dextrocurvature of the thoracic spine. SOFT TISSUES/LYMPH NODES: Unremarkable. LOWER NECK: No significant findings. UPPER ABDOMEN: No significant findings. IMPRESSION: Posterior treatment changes from right middle lobectomy. Similar groundglass opacities with a few new subcentimeter nodular groundglass densities within the posterior right upper lung. No new adenopathy . Similar trace right pleural effusion. Findings may relate to posttreatment change with an infectiou s/inflammatory bronchiolitis. Recurrence is not excluded. Attention on follow-up exam. [facility], , 09/26/2024 1:01 PM
== END | disposition home or self-care (01) ==
LOC: RADCTMAIN 10:52
PROVIDERS: ATTEND Internal Medicine Hematology & Oncology
DX: C34.2 Malignant neoplasm of middle lobe, bronchus or lung (principal); J21.9 Acute bronchiolitis, unspecified; J90 Pleural effusion, not elsewhere classified; E03.9 Hypothyroidism, unspecified; E78.5 Hyperlipidemia, unspecified; M81.0 Age-related osteoporosis without current pathological fracture; Z85.118 Personal history of other malignant neoplasm of bronchus and lung
CPT/HCPCS: 82565; 84520; 71260; 36415; Q9967

== ENCOUNTER 2024-10-09 11:36 | Observation (INO) | payer MEDICARE ==
[2024-10-09] MEDS: SODIUM CHLORIDE 0.9% 1,000 ML IV STA (12:12)
[2024-10-09] MEDS: ASPIRIN 81 MG PO STA (12:13)
[2024-10-09] MEDS: NITROGLYCERIN SL TABS 0.4 MG TAB SUBLINGUAL STA (12:14)
[2024-10-09 12:25] LABS: Basophils % (A) 1 %; Eosinophils # (A) 0.1 k/uL (0-0.7); Eosinophils % (A) 2 %; HCT 43.9 % (34.0-46.0); HGB 14.7 gm/dL (11.4-16.0); Lymphocytes # (A) 0.9 k/uL (1.0-4.8); Lymphocytes % (A) 20 %; MCH 31.7 pg (25.0-35.0); MCHC 33.4 g/dL (31.0-37.0); MCV 95.1 fL (80.0-100.0); Mean Platelet Volume 7.2; Monocytes # (A) 0.3 k/uL (0-1.0); Monocytes % (A) 7 %; Neutrophils # (A) 2.9 k/uL (1.3-7.7); Neutrophils % (A) 67 %; Platelet Count 192 k/uL (150-450); RBC 4.62 m/uL (3.80-5.40); WBC 4.4 k/uL (3.8-10.6)
[2024-10-09 12:35] LABS: ALT 45 U/L (4-34); AST 37 U/L (14-36); African American GFR (CKD) >90 (>60 ml/min/1.73 sqM); Albumin 4.5 g/dL (3.5-5.0); Alkaline Phosphatase 56 U/L (38-126); Anion Gap 10 mmol/L; Blood Urea Nitrogen 16 mg/dL (7-17); Calcium 8.8 mg/dL (8.4-10.2); Carbon Dioxide 23 mmol/L (22-30); Chloride 98 mmol/L (98-107); Glucose 111 mg/dL (74-99); Lipase 85 U/L (23-300); Magnesium 1.9 mg/dL (1.6-2.3); Non-African American GFR(CKD) >90 (>60 ml/min/1.73 sqM); Potassium 3.8 mmol/L (3.5-5.1); Sodium 131 mmol/L (137-145); Total Bilirubin 0.6 mg/dL (0.2-1.3); Total Protein 6.7 g/dL (6.3-8.2)
[2024-10-09 12:37] LABS: Partial Thromboplastin Time 24.6 sec (22.0-30.0); Prothrombin Time 10.9 sec (10.0-12.5)
[2024-10-09 12:43] LABS: NT-Pro-B-Type Natriuretic Pept <20 pg/mL
--- NOTE | 2024-10-09 12:43 | XR ---
EXAMINATION TYPE: XR chest 2V DATE OF EXAM: 10/09/2024 12:25 PM COMPARISON: Chest radiographs from 01/15/2024 CLINICAL INDICATION: Female, 69 years old with history of Chest Pain; TECHNIQUE: XR chest 2V Frontal and lateral views of the chest. FINDINGS: Lungs/Pleura: There is no evidence of pleural effusion, focal consolidation, or pneumothorax. Pulmonary vascularity: Unremarkable. Heart/mediastinum: Cardiomediastinal silhouette is unremarkable. Musculoskeletal: No acute osseous pathology. IMPRESSION: 1. No acute cardiopulmonary disease process. 2. COPD changes. [facility], , 10/09/2024 12:40 PM
--- NOTE | 2024-10-09 14:11 | CT ---
EXAMINATION TYPE: CT chest angio for PE DATE OF EXAM: 10/09/2024 COMPARISON: 09/26/2024 CLINICAL INDICATION: Female, 69 years old with history of eval for PE, chest pain; PHH, CHEST PAIN, S OB or PAIN TECHNIQUE: Ct angiogram of the chest performed with with IV Contrast, patient injected with 100 mL of Isovue 370 . MIP images are created and reviewed. CT DLP: 246.[address] CTDI: mGy Automated exposure control for dose reduction was used. FINDINGS: There are stable postsurgical changes of right middle lobe lobectomy. There is pleural parenchymal sc arring with calcification in the right lung apex and mild pleural parenchymal scarring in the left lauren ng apex. There is no new or suspicious lung mass or nodule. There is no airspace consolidation. There is no pleural effusion or pneumothorax. The great vessels of the chest are normal. There is no filling defect within the pulmonary arterial c irculation to suggest pulmonary embolism. There is no mediastinal, hilar or axillary adenopathy. No focal osseous lesions are seen. Limited scanning through the upper abdomen reveals no gross abnormality. IMPRESSION: 1. No evidence of pulmonary embolism. 2. Stable postsurgical changes and chronic changes as described above. 3. No acute cardiopulmonary disease. Follow-up recommendations for incidental pulmonary nodules are per [employer] or [employer]. [facility], , 10/09/2024 2:08 PM
[2024-10-09 14:31] LABS: Appearance,Urine Cloudy (Clear); Bilirubin,Urine Negative (Negative); Blood,Urine Negative (Negative); Color,Urine Colorless; Glucose,Urine (UA) Negative (Negative); Ketones,Urine 1+ (Negative); Leukocyte Esterase,Urine Negative (Negative); Nitrite,Urine Negative (Negative); PH, Urine 7.5 (5.0-8.0); Protein,Urine Negative (Negative); Specific Gravity,Urine 1.011 (1.001-1.035); Urobilinogen,Urine <2.0 mg/dL (<2.0); WBC,Urine 2 /hpf (0-5)
[2024-10-09] MEDS ORDERED: NALOXONE 0.4 MG/ML 1 ML VIAL IV PRN (14:50)
[2024-10-09] MEDS ORDERED: ONDANSETRON 4 MG/2 ML VIAL IVP PRN (15:05)
--- NOTE | 2024-10-09 15:08 | ED ---
General Adult HPI - General Chief complaint: Chest Pain Stated complaint: CHEST PAIN Time Seen by Provider: 10/09/24 12:00 Source: patient, RN notes reviewed, old records reviewed Mode of arrival: ambulatory Limitations: no limitations - History of Present Illness Initial comments: Patient is a 69-year-old female with past medical history remarkable for lung cancer with partial lung resection, hyperlipidemia, thyroid disorder who presents emergency department complaining of chest pain. Is due to have a stress test done on an outpatient basis for persistent chest pain however states her chest pain today is worse. It is different as it is substernal and a pressure achy sensation however patient also felt like she was having cold sweats as well as having nausea but no episodes of emesis. No radiation of the pain. Located substernally. Denies any abdominal pain, shortness of breath. Denies any fevers or chills. No history of CAD or cardiac stents. Presents for further evaluation at this time.States the chest pain typically comes on on exertion. Does have a history of almost daily episodes of this however today's was worse. - Related Data Home Medications Medication Instructions Recorded Confirmed Ezetimibe [Zetia] 10 mg PO HS 11/17/23 10/09/24 Indapamide [Lozol] 1.25 mg PO QAM 11/17/23 10/09/24 Levothyroxine Sodium [Synthroid] 50 mcg PO QAM 11/17/23 10/09/24 Prolia (Unknown Dose) 1 dose SQ Q180D 11/17/23 10/09/24 Atorvastatin [Lipitor] 20 mg PO HS 01/10/24 10/09/24 Folic Acid 0.8 mg PO DAILY 10/09/24 10/09/24 Allergies Allergy/AdvReac Type Severity Reaction Status Date / Time No Known Allergies Allergy Verified 10/09/24 15:05 Review of Systems ROS Statement: Those systems with pertinent positive or pertinent negative responses have been documented in the HPI. Review of Systems: CONST: Denies fever EYES: Denies blurry vision ENT: Denies nasal congestion C/V: Endorses chest pain RESP: Denies shortness of breath GI: Denies abdominal pain : Denies dysuria SKIN: Denies rash. MSK: Denies joint pain. NEURO: Denies headache ROS Other: All systems not noted in ROS Statement are negative. Past Medical History Past Medical History: Hyperlipidemia, Sleep Apnea/CPAP/BIPAP, Thyroid Disorder Additional Past Medical History / Comment(s): currently has spot on lt lung, hx osteoporosis,uses [place] as a potassium jose History of Any Multi-Drug Resistant Organisms: None Reported Past Surgical History: Hysterectomy Additional Past Surgical History / Comment(s): bi lat cataracts removed Past Anesthesia/Blood Transfusion Reactions: No Reported Reaction, Motion Sickness Past Psychological History: No Psychological Hx Reported Smoking Status: Never smoker Past Alcohol Use History: Occasional Past Drug Use History: None Reported - Past Family History Father Family Medical History: CVA/TIA General Exam - General Exam Comments Initial Comments: General: Appears in no acute distress. HEAD: Normal with no signs of head trauma. EYES: PERRLA, EOMI, conjunctiva normal, no discharge. ENT: Hearing grossly intact, normal oropharynx. RESPIRATORY: Clear breath sounds bilaterally. No wheezes, rales, or rhonchi. C/V: Regular rate and rhythm. S1 and S2 auscultated, no edema, peripheral pulses 2+ and intact throughout ABD: Abd is soft, nontender, nondistended EXT: Normal range of motion, no obvious deformity SKIN: No rashes or lesions observed on exposed skin. NEURO: Alert and oriented x 4. Limitations: no limitations Course Vital Signs 10/09/24 10/09/24 11:37 13:13 Temperature 98 F Pulse Rate 98 81 Respiratory 22 16 Rate Blood Pressure 155/89 102/64 O2 Sat by Pulse 99 100 Oximetry Medical Decision Making - Medical Decision Making Was pt. sent in by a medical professional or institution (, PA, COMP FIELD CASE MANAGER, urgent care, hospital, or penitentiary...) When possible be specific @ -No Did you speak to anyone other than the patient for history (EMS, parent, family, police, friend...)? What history was obtained from this source @ -No Did you review nursing and triage notes (agree or disagree)? Why? @ -I reviewed and agree with nursing and triage notes Were old charts reviewed (outside hosp., previous admission, EMS record, old EKG, old radiological studies, urgent care reports/EKG's, penitentiary records)? Report findings @ -No old charts were reviewed Differential Diagnosis (chest pain, altered mental status, abdominal pain women, abdominal pain men, vaginal bleeding, weakness, fever, dyspnea, syncope, headache, dizziness, GI bleed, back pain, seizure, CVA, palpatations, mental health, musculoskeletal)? @ -Differential Chest Pain: Stable Angina, Unstable Angina, STEMI, NSTEMI Aortic Dissection, Pneumothorax, Musculoskeletal, Esophageal Spasm GERD, Cholecystitis, Pancreatitis, Zoster, this is not meant to be an all-inclusive list. EKG interpreted by me (3pts min.). @ -As above X-rays interpreted by me (1pt min.). @ -Chest x-ray reveals no obvious acute cardiopulmonary process. CT interpreted by me (1pt min.). @ -CT PE negative for pulmonary embolism or other acute cardiopulmonary process. U/S interpreted by me (1pt. min.). @ -None done What testing was considered but not performed or refused? (CT, X-rays, U/S, labs)? Why? @ -None What meds were considered but not given or refused? Why? @ -None Did you discuss the management of the patient with other professionals (professionals i.e. , PA, COMP FIELD CASE MANAGER, lab, RT, psych nurse, perinatal social worker, track machine operator repairer, teacher, consular officer, pillowcase sewer)? Give summary @ -Discussed with admitting provider, Dr. Obregon who accepted the admission. Was smoking cessation discussed for >3mins.? @ -No Was critical care preformed (if so, how long)? @ -No Were there social determinants of health that impacted care today? How? (Homelessness, low income, unemployed, alcoholism, drug addiction, transportation, low edu. Level, literacy, decrease access to med. care, [facility], rehab)? @ -No Was there de-escalation of care discussed even if they declined (Discuss DNR or withdrawal of care, Hospice)? DNR status @ -No What co-morbidities impacted this encounter? (DM, HTN, Smoking, COPD, CAD, Cancer, CVA, ARF, Chemo, Hep., AIDS, mental health diagnosis, sleep apnea, morbid obesity)? @ -None Was patient admitted / discharged? Hospital course, mention meds given and route, prescriptions, significant lab abnormalities, going to OR and other pertinent info. @ -Based on the patient's presentation and physical exam, patient presents emergency department over concern for worsening chest pain. Vitals are within acceptable limits. She will be given aspirin as well as nitro. She was in a greement this plan. We will obtain CT PE due to his history of cancer as well as having mild shortness of breath with it. Patient will be administered a nitro tablet. Patient was in agreement this plan. EKG x 2 showed no findings consistent with acute ischemic process. Laboratory studies remarkable for undetectable troponin. Remainder the labs unremarkable. Mild hyponatremia of 131. Imaging unremarkable. No evidence of PE on CT. On reevaluation, nitro did improve the patient's symptoms. Patient will be placed on Nitropaste. I did recommend cardiac observation which she was in agreement with. Cardiology consulted. Echo ordered. Nitropaste ordered. I spoke with the admitting provider, Dr. Obregon who accepted the admission. Undiagnosed new problem with uncertain prognosis? @ -No Drug Therapy requiring intensive monitoring for toxicity (Heparin, Nitro, Insulin, Cardizem)? @ -No Were any procedures done? @ -No Diagnosis/symptom? @ -Chest pain Acute, or Chronic, or Acute on Chronic? @ -Acute Uncomplicated (without systemic symptoms) or Complicated (systemic symptoms)? @ -Complicated Side effects of treatment? @ -No Exacerbation, Progression, or Severe Exacerbation? @ -No Poses a threat to life or bodily function? How? (Chest pain, [place], [place], pneumonia, PE, COPD, DKA, ARF, appy, cholecystitis, CVA, Diverticulitis, Homicidal, Suicidal, threat to staff... and all critical care pts) @ -Potentially, yes - Lab Data Result diagrams: 10/09/24 12:18 10/09/24 12:18 Lab Results 10/09/24 10/09/24 10/09/24 Range/Units 12:18 12:18 12:18 WBC 4.4 (3.8-10.6) k/uL RBC 4.62 (3.80-5.40) m/uL Hgb 14.7 (11.4-16.0) gm/dL Hct 43.9 (34.0-46.0) % MCV 95.1 (80.0-100.0) fL MCH 31.7 (25.0-35.0) pg MCHC 33.4 (31.0-37.0) g/dL RDW 13.0 (11.5-15.5) % Plt Count 192 (150-450) k/uL MPV 7.2 Neutrophils % 67 % Lymphocytes % 20 % Monocytes % 7 % Eosinophils % 2 % Basophils % 1 % Neutrophils # 2.9 (1.3-7.7) k/uL Lymphocytes # 0.9 L (1.0-4.8) k/uL Monocytes # 0.3 (0-1.0) k/uL Eosinophils # 0.1 (0-0.7) k/uL Basophils # 0.0 (0-0.2) k/uL PT 10.9 (10.0-12.5) sec INR 1.0 (<1.2) APTT 24.6 (22.0-30.0) sec Sodium 131 L (137-145) mmol/L Potassium 3.8 (3.5-5.1) mmol/L Chloride 98 (98-107) mmol/L Carbon Dioxide 23 (22-30) mmol/L Anion Gap 10 mmol/L BUN 16 (7-17) mg/dL Creatinine 0.53 (0.52-1.04) mg/dL Est GFR (CKD-EPI)AfAm >90 (>60 ml/min/1.73 sqM) Est GFR (CKD-EPI)NonAf >90 (>60 ml/min/1.73 sqM) Glucose 111 H (74-99) mg/dL Calcium 8.8 (8.4-10.2) mg/dL Magnesium 1.9 (1.6-2.3) mg/dL Total Bilirubin 0.6 (0.2-1.3) mg/dL AST 37 H (14-36) U/L ALT 45 H (4-34) U/L Alkaline Phosphatase 56 (38-126) U/L Troponin I (0.000-0.034) ng/mL NT-Pro-B Natriuret Pep <20 pg/mL Total Protein 6.7 (6.3-8.2) g/dL Albumin 4.5 (3.5-5.0) g/dL Lipase 85 (23-300) U/L Urine Color Urine Appearance (Clear) Urine pH (5.0-8.0) Ur Specific Cable (1.001-1.035) Urine Protein (Negative) Urine Glucose (UA) (Negative) Urine Ketones (Negative) Urine Blood (Negative) Urine Nitrite (Negative) Urine Bilirubin (Negative) Urine Urobilinogen (<2.0) mg/dL Ur Leukocyte Esterase (Negative) Urine WBC (0-5) /hpf 10/09/24 10/09/24 Range/Units 12:18 12:18 WBC (3.8-10.6) k/uL RBC (3.80-5.40) m/uL Hgb (11.4-16.0) gm/dL Hct (34.0-46.0) % MCV (80.0-100.0) fL MCH (25.0-35.0) pg MCHC (31.0-37.0) g/dL RDW (11.5-15.5) % Plt Count (150-450) k/uL MPV Neutrophils % % Lymphocytes % % Monocytes % % Eosinophils % % Basophils % % Neutrophils # (1.3-7.7) k/uL Lymphocytes # (1.0-4.8) k/uL Monocytes # (0-1.0) k/uL Eosinophils # (0-0.7) k/uL Basophils # (0-0.2) k/uL PT (10.0-12.5) sec INR (<1.2) APTT (22.0-30.0) sec Sodium (137-145) mmol/L Potassium (3.5-5.1) mmol/L Chloride (98-107) mmol/L Carbon Dioxide (22-30) mmol/L Anion Gap mmol/L BUN (7-17) mg/dL Creatinine (0.52-1.04) mg/dL Est GFR (CKD-EPI)AfAm (>60 ml/min/1.73 sqM) Est GFR (CKD-EPI)NonAf (>60 ml/min/1.73 sqM) Glucose (74-99) mg/dL Calcium (8.4-10.2) mg/dL Magnesium (1.6-2.3) mg/dL Total Bilirubin (0.2-1.3) mg/dL AST (14-36) U/L ALT (4-34) U/L Alkaline Phosphatase (38-126) U/L Troponin I <0.012 (0.000-0.034) ng/mL NT-Pro-B Natriuret Pep pg/mL Total Protein (6.3-8.2) g/dL Albumin (3.5-5.0) g/dL Lipase (23-300) U/L Urine Color Colorless Urine Appearance Cloudy H (Clear) Urine pH 7.5 (5.0-8.0) Ur Specific Cable 1.011 (1.001-1.035) Urine Protein Negative (Negative) Urine Glucose (UA) Negative (Negative) Urine Ketones 1+ H (Negative) Urine Blood Negative (Negative) Urine Nitrite Negative (Negative) Urine Bilirubin Negative (Negative) Urine Urobilinogen <2.0 (<2.0) mg/dL Ur Leukocyte Esterase Negative (Negative) Urine WBC 2 (0-5) /hpf - EKG Data -: EKG Interpreted by Me EKG Comments: 12-lead Electrocardiogram Interpretation Note EKG was reviewed and interpreted by myself. 12-lead ECG performed at 1145 is interpreted by me as revealing normal sinus rhythm at a rate of 96 beats per minute. [place] is normal. NE interval is 176 ms, QRS duration is 85 ms. QTc is 418 ms.. There were no ST or T wave abnormalities to suggest myocardial ischemia or injury. R wave progression across the precordium was satisfactory. By my interpretation this EKG is non-diagnostic for acute ischemia 12-lead Electrocardiogram Interpretation Note EKG was reviewed and interpreted by myself. 12-lead ECG performed at 1328 is interpreted by me as revealing normal sinus rhythm at a rate of 77 beats per minute. [place] is normal. NE interval is 216 ms, QRS duration is 92 ms, QTc is 422 ms.. There were no ST or T wave abnormalities to suggest myocardial ischemia or injury. R wave progression across the precordium was satisfactory. By my interpretation this EKG is non-diagnostic for acute ischemia. . Disposition Clinical Impression: Chest pain Disposition: ADMITTED IP TO THIS HOSP Condition: Stable Referrals: Candie Obregon MD [Primary Care Provider] - 1-2 days Time of Disposition: 14:40
[2024-10-09] MEDS: NITROGLYCERIN OINT 1 INCH/GM PACKET TOPICAL SCH (15:41)
--- NOTE | 2024-10-09 17:02 | CA ---
Transthoracic Echo Report Name: Vanessa Gonzalez Age: 69 Gender: F : 1955 Exam Date: 10/09/2024 15:41 Exam Location: [facility] Ht (in): 68 Wt (lb): 145 Ordering Physician: Swapnil Hoffman MD Attending/Referring Phys: Restaurant Expeditor Ashanti Brown RDCS Procedure CPT: Indications: Chest Pain Cardiac Hx: Technical Quality: Good Contrast 1: Total Dose (mL): Contrast 2: Total Dose (mL): MEASUREMENTS (Male / Female) Normal Values 2D ECHO LV Diastolic Diameter PLAX 4.4 cm 4.2 - 5.9 / 3.9 - 5.3 cm LV Systolic Diameter PLAX 2.8 cm IVS Diastolic Thickness 0.7 cm 0.6 - 1.0 / 0.6 - 0.9 cm LVPW Diastolic Thickness 0.9 cm 0.6 - 1.0 / 0.6 - 0.9 cm LV Relative Wall Thickness 0.4 RV Internal Dim ED PLAX 2.7 cm LA Systolic Diameter LX 3.1 cm 3.0 - 4.0 / 2.7 - 3.8 cm LV Diastolic Volume MOD 4C 63.6 cm??? LV Systolic Volume MOD 4C 29.4 cm??? LV Ejection Fraction MOD 4C 53.8 % LV Cardiac Index MOD 4C 1386.2 cm???/min???m??? LV Diastolic Length 4C 7.1 cm LV Systolic Length 4C 5.9 cm LV Diastolic Volume MOD 2C 52.9 cm??? LV Systolic Volume MOD 2C 26.3 cm??? LV Ejection Fraction MOD 2C 50.3 % LV Cardiac Index MOD 2C 1076.8 cm???/min???m??? LV Diastolic Length 2C 7.7 cm LV Systolic Length 2C 7.0 cm M-MODE Aortic Root Diameter MM 2.5 cm LA Systolic Diameter MM 1.6 cm LA Ao Ratio MM 0.7 DOPPLER AV Peak Velocity 119.8 cm/s AV Peak Gradient 5.7 mmHg Mitral E Point Velocity 51.9 cm/s Mitral A Point Velocity 70.2 cm/s Mitral E to A Ratio 0.7 MV Deceleration Time 163.0 ms MV E' Velocity 7.3 cm/s Mitral E to MV E' Ratio 7.1 TR Peak Velocity 221.6 cm/s TR Peak Gradient 19.6 mmHg Right Ventricular Systolic Press 29.6 mmHg FINDINGS Left Ventricle Left ventricular ejection fraction is estimated at 55-60 %. Left ventricular cavity size normal. Left ventricular wall thickness normal. Normal left ventricular wall motion. Right Ventricle Normal right ventricular size and function. Right ventricular systolic pressure within normal limits. Right Atrium Normal right atrial size. No right atrial thrombus or mass seen. Left Atrium Normal left atrial size. No left atrial thrombus or mass present. Mitral Valve Structurally normal mitral valve. No mitral stenosis, regurgitation or prolapse. Aortic Valve Trileaflet aortic valve. No aortic valve stenosis or regurgitation. Tricuspid Valve Structurally normal tricuspid valve. Trace to mild tricuspid regurgitation. Pulmonic Valve Structurally normal pulmonic valve. No pulmonic regurgitation. Pericardium No pericardial or pleural effusion. Aorta Normal size aortic root and proximal ascending aorta. CONCLUSIONS LVEF 55 to 60% No obvious regional wall motion abnormality No significant valvular dysfunction No significant chamber size abnormality Normal RV size systolic function with RVSP estimated 30 mmHg Previewed by: Dr Filemon Rayo (Electronically Signed) Final Date: 09 October 2024 17:01
[2024-10-09] MEDS: ATORVASTATIN 20 MG TAB PO SCH (21:14)
[2024-10-09] MEDS: EZETIMIBE 10 MG TAB PO SCH (21:14)
[2024-10-10] MEDS: LEVOTHYROXINE 50 MCG TAB PO SCH (06:04)
--- NOTE | 2024-10-10 06:52 | P.HPIM ---
History of Present Illness H&P Date: 10/09/24 Chief Complaint: Chest pain This is a 69-year-old female patient of mine with a previous medical history significant for mixed hyperlipidemia, hypothyroidism, history of osteoporosis without pathological fracture, history of moderate obstructive sleep apnea, patient is a lifelong non-smoker, on surveillance CT of the coronary arteries she was found to have a pulmonary nodule this is after she developed to have a significant COVID infection this was started back in July and 2021, where the CT scan of the chest showed right middle lobe nodule/mass with right upper lobe consolidation, she was treated with multiple courses of oral antibiotic and steroid, she was referred to pulmonary medicine, and the patient was feeling fine at that time, up till recently when she came for her wellness visit and she was sent for a surveillance CT scan of the chest with contrast that showed an enlargement of the right middle lobe mass as well as right upper lobe infiltrate she was sent to Dr. 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 Finn and after appropriate staining the biopsy was sent to PD-L1 and next generation sequencing it was recommended at that time for the patient to go for surgical intervention followed by chemotherapy therefore the patient was referred to Dr. Estrella she underwent robotic assisted thoracoscopic right middle lobe wedge resec tion x 2 and right upper lobe wedge resection x 1 along with mediastinal lymph node dissection patient has done very well after surgery and patient has been following with hematology oncology Dr. Finn as well as radiation oncologist and Dr. Hayes she just finished treatment in April 22, 2024 and she had a PET scan that confirmed that the disease is in remission and she has been doing fine apparently patient came to the emergency department with left-sided chest pain associated with diaphoresis and shortness of breath appears to be exertional at that time not all the time her D-dimer was slightly elevated, her chest x-ray did not show evidence of acute abnormalities except for COPD changes, because of that she underwent CT angiography of the chest that was negative for pulmonary bruising, it did show evidence of chronic changes and scarring in the right middle lobe due to surgical intervention, no evidence of a new or recurrent neoplasm at this time, but because of the presentation she was kept in the hospital for evaluation by cardiology echocardiogram was done that showed evidence of normal ejection fraction 55 to 60% and no significant valvular motion abnormalities, patient continues to have effort angina she does have a Nitropaste on chest, she stated that this did help her a lot we will discuss with cardiology the need for possible stress test in the morning versus left he art catheterization REVIEW OF SYSTEMS: Constitutional: No documented fever, no chills, no night sweats. No weight change. No weakness, fatigue or lethargy. No daytime sleepiness. EENT: No headache. No blurred vision or double vision, no loss of vision. No loss of Hearing, no ringing in the ears, no dizziness. No nasal drainage or congestion. No epistaxis. No sore throat. Lungs: No shortness of breath, occasional cough, no sputum production. No wheezing. Reports dyspnea with activity. Cardiovascular: Positive for chest pain exertion, no lower extremity edema. No palpitations. No paroxysmal nocturnal dyspnea. No orthopnea. No lightheadedness or dizziness. No syncopal episodes. Abdominal: Reports no abdominal pain. No nausea, vomiting. No diarrhea. No constipation. No bloody or tarry stools reports loss of appetite. Genitourinary: No dysuria, increased frequency, urgency. No urinary retention. Musculoskeletal: No myalgias. No muscle weakness, no gait dysfunction, no frequent falls. No back pain. No neck pain. Integumentary: , no lesions. No rash or pruritus. No unusual bruising. No change in hair or nails. Neurologic: No aphasia. No facial droop. No change in mentation. No head injury. No headache. No paralysis. No paresthesia. Psychiatric: No depression. No anxiety. No mood swings. Endocrine: No abnormal blood sugars. No weight change. PAST MEDICAL HISTORY: Hypothyroidism. Mixed hyperlipidemia Moderate obstructive sleep apnea Osteoporosis without pathological fracture History of COVID infection PAST SURGICAL HISTORY: Robotic assisted thoracoscopic wedge resection of the right middle lobe x 2 and right upper lobe x 1 with lymph node dissection January 13, 2024 Colonoscopy 02/26/2022 Colonoscopy 2017 Total abdominal hysterectomy due to prolapsed uterus Bilateral cataract surgery. Left breast biopsies. SOCIAL HISTORY: Patient is a lifelong non-smoker, she denies any alcohol ingestion, she denies any drug use or abuse she is currently very active. FAMILY HISTORY: Father at age of 83 from stroke and he also had history of osteoporosis, mother at the age 89 from Alzheimer's dementia, patient has 2 brothers 68 and 61-year-old no health issues, patient has a son 39-year-old alive and healthy and 2 daughters 39 and 41 they are both healthy one of her daughter at the bedside. PHYSICAL EXAMINATION: General: 69-year-old female laying down in bed in no apparent distress. HEENT: Head is atraumatic, normocephalic, pupils were equal round reactive to light and recommendation, extraocular muscle movement were intact, sclera nonicteric, conjunctivae were pale, mucous membranes of the mouth are somewhat dry. Neck: Supple, no JVP, normal carotid upstroke bilaterally, no lymphadenopathy. Chest: Decreased breath sounds at the bases, few rhonchi, no expiratory wheezes, minimal chest wall tenderness Heart: First heart sound is normal, second heart sounds normal there is mild systolic ejection murmur 1/6 located in the left sternal border. Abdomen: Soft, nontender, nondistended, positive bowel sounds. Extremities: There is no edema no calf tenderness DP +2 bilaterally. Neurologic examination: Patient is awake alert and oriented x3, cranial nerves II-12 appear grossly intact, muscle power were 5 out of 5 in upper extremities and 5 out of 5 in bilateral lower extremities, deep tendon reflexes normal owen aterally. ASSESSMENT AND PLAN: 1. Chest pain of unclear etiology patient underwent echocardiogram that showed normal ejection fraction 55 to 60%, with no significant valvular abnormalities, she was admitted to hospital for evaluation by cardiology as well, will continue to follow-up with the patient very closely, may need myocardial perfusion imaging tomorrow morning versus left heart catheterization. 2. Well-differentiated lipidic adenocarcinoma in a patient who is non-smoker that is negative for PD-L1 and next generation sequencing. Under the care of Dr. Finn from hematology oncology, status post surgical intervention and chemotherapy along with radiation therapy with Dr. Hayes she just finished her treatment on April 22, 2024 and she had a PET scan and followed up with her oncolo gist. Her disease is in remission at this time. 3. Mixed hyperlipidemia. Continue patient on atorvastatin 20 mg once every day as well as Zetia 10 mg once every day. 4. Hypothyroidism. Continue patient on Synthroid 50 mcg orally once every day. 5. Moderate obstructive sleep apnea continue patient CPAP as at home. 6. DVT prophylaxis. Early ambulation. Start the patient on Lovenox 40 mg subcutaneous every 24 hours. 7. GI prophylaxis. Continue with Protonix 40 mg orally once every day.. 8. Admit to observation. 9. Full code . Past Medical History Past Medical History: Hyperlipidemia, Sleep Apnea/CPAP/BIPAP, Thyroid Disorder Additional Past Medical History / Comment(s): currently has spot on lt lung, hx osteoporosis,uses Indapamie as a potassium jose History of Any Multi-Drug Resistant Organisms: None Reported Past Surgical History: Hysterectomy Additional Past Surgical History / Comment(s): bi lat cataracts removed Past Anesthesia/Blood Transfusion Reactions: No Reported Reaction, Motion Sickness Past Psychological History: No Psychological Hx Reported Smoking Status: Never smoker Past Alcohol Use History: Occasional Past Drug Use History: None Reported - Past Family History Father Family Medical History: CVA/TIA Medications and Allergies Home Medications Medication Instructions Recorded Confirmed Type Ezetimibe [Zetia] 10 mg PO HS 11/17/23 10/09/24 History Indapamide [Lozol] 1.25 mg PO QAM 11/17/23 10/09/24 History Levothyroxine Sodium [Synthroid] 50 mcg PO QAM 11/17/23 10/09/24 History Prolia (Unknown Dose) 1 dose SQ Q180D 11/17/23 10/09/24 History Atorvastatin [Lipitor] 20 mg PO HS 01/10/24 10/09/24 History Folic Acid 0.8 mg PO DAILY 10/09/24 10/09/24 History Allergies Allergy/AdvReac Type Severity Reaction Status Date / Time No Known Allergies Allergy Verified 10/09/24 15:05 Physical Exam Vitals: Vital Signs Temp Pulse Resp BP Pulse Ox 10/09/24 18:00 101 H 18 127/88 99 10/09/24 15:42 90 18 129/83 96 10/09/24 13:13 81 16 102/64 100 10/09/24 11:37 98 F 98 22 155/89 99 Intake and Output 10/09/24 10/09/24 10/09/24 06:59 14:59 22:59 Other: Weight 65.771 kg Results CBC & Chem 7: 10/09/24 12:18 10/09/24 12:18 Labs: Abnormal Lab Results - Last 24 Hours (Table) 10/09/24 10/09/24 10/09/24 Range/Units 12:18 12:18 12:18 Lymphocytes # 0.9 L (1.0-4.8) k/uL Sodium 131 L (137-145) mmol/L Glucose 111 H (74-99) mg/dL AST 37 H (14-36) U/L ALT 45 H (4-34) U/L Urine Appearance Cloudy H (Clear) Urine Ketones 1+ H (Negative)
[2024-10-10 08:59] LABS: ALT 32 U/L (8-44); AST 26 U/L (13-35); Albumin 4.1 g/dL (3.8-4.9); Albumin/Globulin Ratio 2.41 Ratio (1.60-3.17); Alkaline Phosphatase 40 U/L (41-126); Blood Urea Nitrogen 11.4 mg/dL (9.0-27.0); Calcium 8.4 mg/dL (8.7-10.3); Carbon Dioxide 22.6 mmol/L (21.6-31.8); Chloride 102 mmol/L (96-109); Globulin 1.7 g/dL (1.6-3.3); Glucose 111 mg/dL (70-110); Potassium 3.9 mmol/L (3.5-5.5); Sodium 136 mmol/L (135-145); Total Bilirubin 0.3 mg/dL (0.3-1.2); Total Protein 5.8 g/dL (6.2-8.2)
[2024-10-10] MEDS: ENOXAPARIN 40 MG/0.4 ML SYRINGE SQ SCH (09:08)
[2024-10-10] MEDS: hydroCHLOROthiazide 12.5 MG CAP PO SCH (09:08)
[2024-10-10] MEDS: FOLIC ACID 1 MG TAB PO SCH (09:08)
[2024-10-10 10:25] LABS: Basophils # (A) 0.05 X 10*3/uL (0.00-0.10); Basophils % (A) 1.2 %; Eosinophils # (A) 0.09 X 10*3/uL (0.04-0.35); Eosinophils % (A) 2.1 %; HCT 40.2 % (37.2-46.3); HGB 13.6 g/dL (12.0-15.0); Lymphocytes # (A) 0.92 X 10*3/uL (0.90-5.00); Lymphocytes % (A) 21.7 %; MCH 31.3 pg (27.0-32.0); MCHC 33.8 g/dL (32.0-37.0); MCV 92.4 FL (80.0-97.0); Mean Platelet Volume 10.1 FL (9.5-12.2); Monocytes # (A) 0.54 X 10*3/uL (0.20-1.00); Monocytes % (A) 12.7 %; NRBC Per 100 WBC 0 X 10*3/uL (0.00-0.01); Neutrophils # (A) 2.62 X 10*3/uL (1.80-7.70); Neutrophils % (A) 61.8 %; Platelet Count 193 X 10*3/uL (140-440); RBC 4.35 X 10*6/uL (4.10-5.20); RDW 13.3 % (11.5-14.5); WBC 4.24 X 10*3/uL (4.50-10.00)
[2024-10-10] MEDS ORDERED: ALPRAZolam 0.25 MG TAB PO PRN (11:07)
[2024-10-10] MEDS ORDERED: NITROGLYCERIN SL TABS 0.4 MG TAB SUBLINGUAL PRN (11:07)
[2024-10-10] MEDS: ASPIRIN 325 MG TAB PO STA (11:34)
--- NOTE | 2024-10-10 11:35 | P.CRDCN ---
History of Present Illness History of present illness: HISTORY OF PRESENT ILLNESS: This is a 69-year-old female with a past medical history significant for hyperlipidemia, hypothyroidism, lung cancer with right middle lobe lobectomy in December 2023 followed by 3 rounds of chemo and 6 radiation treatments that ended in April 2024. Patient does not follow with a veterinary pharmacologist. We have been asked to see the patient in consultation for chest pain. Patient examined at the bedside. Patient reports she has been trying to regain her strength and stamina since her treatment for lung cancer. She states over the past month she has been having chest pain that occurs with exertion. She also reports recently she has been getting nauseated with exertion as well. She states that she has a stress test ordered by her primary care physician that is scheduled for next week. However due to her increasing chest pain she presented to the hospital for further evaluation. The patient does report that she received sublingual nitro in the emergency room with relief of her chest discomfort. She states that she saw her oncologist, Dr. Finn, last week and was told that she had some new spots on her lungs but they were too small to biopsy. She states that she has another CAT scan scheduled in November. She is a non-smoker. She does report several glasses of red wine per week but did not quantify the amount. DIAGNOSTICS: - EKG reveals sinus mechanism with no signs of acute ischemia - Chest xray negative for acute process. COPD changes. - Chest CTA: Negative for pulmonary embolism. Stable postsurgical changes and chronic changes. No acute cardiopulmonary process. - Laboratory data: WBC 4.24. Hemoglobin 13.6. Platelet count 193. Sodium 136. Potassium 3.9. BUN 11.4. Creatinine 0.5. Troponin negative x 3. proBNP less than 20. - Current home cardiac medications include Zetia 10 mg at night and atorvastatin 20 mg at night - Echocardiogram obtained this admission reveals ejection fraction 55 to 60%, no obvious regional wall motion abnormalities, no significant valvular dysfunction. - Cardiac catheterization history: Patient denies - Patient underwent Parth stress test in November 2023 which was negative for ischemia REVIEW OF SYSTEMS: At the time of my exam: CONSTITUTIONAL: Denies fever or chills. HEENT: Denies blurred vision, vision changes, or eye pain. Denies hemoptysis CARDIOVASCULAR: Denies chest pain. Denies orthopnea. Denies PND. Denies palpitations RESPIRATORY: Denies shortness of breath. GASTROINTESTINAL: Denies abdominal pain. Denies nausea or vomiting. HEMATOLOGIC: Denies bleeding disorders. GENITOURINARY: Denies any blood in urine. SKIN: Denies pruitis. Denies rash. PHYSICAL EXAM: VITAL SIGNS: Reviewed. GENERAL: Well-developed in no acute distress. HEENT: Head is normocephalic. Pupils are equal, round. Sclerae anicteric. Mucous membranes of the mouth are moist. Neck supple. No JVD or thyromegaly LUNGS: Respirations even and unlabored. Lungs essentially clear to auscultation bilaterally. HEART: Regular rate and rhythm. S1 and S2 heard. ABDOMEN: Soft. Nondistended. Nontender. EXTREMITIES: Normal range of motion. No clubbing or cyanosis. Peripheral pulses intact. No lower extremity edema NEUROLOGIC: Awake and alert. Oriented x 3. ASSESSMENT: Chest pain, troponin negative x 3 History of lung cancer (lipidic adenocarcinoma) with right middle lobe lobectomy, 12/2023 followed by chemo and radiation Hyperlipidemia Obstructive sleep apnea Frequent alcohol use, report several glasses of red wine per week but did not quantify the amount PLAN: An acute coronary event has been ruled out 2D echo obtained and reviewed Begin aspirin 81 mg daily Continue statin therapy Abstinence from alcohol recommended Patient to undergo stress echocardiogram today Further recommendations pending patient course Nurse practitioner note has been reviewed by physician. Signing provider agrees with the documented findings, assessment, and plan of care documented by [employer] ENTRANCE MONITOR as a scribe. Past Medical History Past Medical History: Hyperlipidemia, Sleep Apnea/CPAP/BIPAP, Thyroid Disorder Additional Past Medical History / Comment(s): currently has spot on lt lung, hx osteoporosis,uses Indap[place] as a potassium jose History of Any Multi-Drug Resistant Organisms: None Reported Past Surgical History: Hysterectomy Additional Past Surgical History / Comment(s): bi lat cataracts removed Past Anesthesia/Blood Transfusion Reactions: No Reported Reaction, Motion Sickness Past Psychological History: No Psychological Hx Reported Smoking Status: Never smoker Past Alcohol Use History: Occasional Past Drug Use History: None Reported - Past Family History Father Family Medical History: CVA/TIA Medications and Allergies Home Medications Medication Instructions Recorded Confirmed Type Ezetimibe [Zetia] 10 mg PO HS 11/17/23 10/09/24 History Indapamide [Lozol] 1.25 mg PO QAM 11/17/23 10/09/24 History Levothyroxine Sodium [Synthroid] 50 mcg PO QAM 11/17/23 10/09/24 History Prolia (Unknown Dose) 1 dose SQ Q180D 11/17/23 10/09/24 History Atorvastatin [Lipitor] 20 mg PO HS 01/10/24 10/09/24 History Folic Acid 0.8 mg PO DAILY 10/09/24 10/09/24 History Allergies Allergy/AdvReac Type Severity Reaction Status Date / Time No Known Allergies Allergy Verified 10/09/24 15:05 Physical Exam Vitals: Vital Signs Temp Pulse Pulse Resp BP BP Pulse Ox 10/10/24 07:00 97.7 F 76 15 117/68 98 10/10/24 02:00 97.9 F 68 17 115/65 98 10/09/24 23:38 97.8 F 76 17 126/74 99 10/09/24 22:20 90 18 125/74 96 10/09/24 21:00 99 18 127/88 10/09/24 18:00 101 H 18 127/88 99 10/09/24 15:42 90 18 129/83 96 10/09/24 13:13 81 16 102/64 100 10/09/24 11:37 98 F 98 22 155/89 99 Intake and Output 10/09/24 10/10/24 10/10/24 22:59 06:59 14:59 Intake Total 0 Balance 0 Intake: Oral 0 Other: # Voids 1 Weight 65.771 kg Results 10/10/24 04:54 10/10/24 04:54 Cardiac Enzymes 10/09/24 10/09/24 10/09/24 Range/Units 12:18 12:18 16:41 AST 37 H (14-36) U/L Troponin I <0.012 <0.012 (0.000-0.034) ng/mL 10/09/24 10/10/24 Range/Units 19:32 04:54 AST 26 (14-36) U/L Troponin I <0.012 (0.000-0.034) ng/mL Coagulation 10/09/24 Range/Units 12:18 PT 10.9 (10.0-12.5) sec APTT 24.6 (22.0-30.0) sec CBC 10/09/24 Range/Units 12:18 WBC 4.4 (3.8-10.6) k/uL RBC 4.62 (3.80-5.40) m/uL Hgb 14.7 (11.4-16.0) gm/dL Hct 43.9 (34.0-46.0) % Plt Count 192 (150-450) k/uL Comprehensive Metabolic Panel 10/09/24 10/10/24 Range/Units 12:18 04:54 Sodium 131 L 136 (137-145) mmol/L Potassium 3.8 3.9 (3.5-5.1) mmol/L Chloride 98 102 (98-107) mmol/L Carbon Dioxide 23 22.6 (22-30) mmol/L BUN 16 11.4 (7-17) mg/dL Creatinine 0.53 0.5 L (0.52-1.04) mg/dL Glucose 111 H 111 H (74-99) mg/dL Calcium 8.8 8.4 L (8.4-10.2) mg/dL AST 37 H 26 (14-36) U/L ALT 45 H 32 (4-34) U/L Alkaline Phosphatase 56 40 L (38-126) U/L Total Protein 6.7 5.8 L (6.3-8.2) g/dL Albumin 4.5 4.1 (3.5-5.0) g/dL Current Medications Generic Name Dose Route Start Last Admin Trade Name Freq PRN Reason Stop Dose Admin Atorvastatin Calcium 20 mg 10/09/24 21:00 10/09/24 21:14 Atorvastatin 20 Mg Tab PO 20 mg HS DOROTA Administration Ezetimibe 10 mg 10/09/24 21:00 10/09/24 21:14 Ezetimibe 10 Mg Tab PO 10 mg HS DOROTA Administration Enoxaparin Sodium 40 mg 10/10/24 09:00 10/10/24 09:08 Enoxaparin 40 Mg/0.4 Ml Syringe SQ 40 mg DAILY DOROTA Administration Folic Acid 1 mg 10/10/24 09:00 10/10/24 09:08 Folic Acid 1 Mg Tab PO 1 mg DAILY DOROTA Administration Hydrochlorothiazide 12.5 mg 10/10/24 09:00 10/10/24 09:08 Hydrochlorothiazide 12.5 Mg Cap PO 12.5 mg QAM DOROTA Administration Levothyroxine Sodium 50 mcg 10/10/24 06:30 10/10/24 06:04 Levothyroxine 50 Mcg Tab PO 50 mcg 0630 DOROTA Administration Naloxone HCl 0.2 mg 10/09/24 14:50 Naloxone 0.4 Mg/Ml 1 Ml Vial IV Q2M PRN Opioid Reversal Nitroglycerin 0.5 inch 10/09/24 15:30 10/10/24 09:02 Nitroglycerin Oint 1 Inch/Gm Packet TOPICAL Not Given Q8HR [facility] Ondansetron HCl 4 mg 10/09/24 15:05 Ondansetron 4 Mg/2 Ml Vial IVP Q8HR PRN Nausea And Vomiting Intake and Output 10/09/24 10/10/24 10/10/24 22:59 06:59 14:59 Intake Total 0 Balance 0 Intake: Oral 0 Other: # Voids 1 Weight 65.771 kg 10/09/24 12:18 10/10/24 04:54
--- NOTE | 2024-10-10 11:41 | CA ---
Stress Echo Report Vanessa Gonzalez Age: 69 Gender: F : 1955 Exam Date: 10/10/2024 10:20 Exam Location: [place] [facility] Ht (in): 68 Wt (lb): 140 Ordering Physician: Mar Trent Referring Physician: [id number] Cell Room Operator: Petra Mayer RDCS Technologist Procedure CPT: Indication: CP ICD-9 Codes: Rhythm: Patient History: Chest pain Cardiac Medications: Medications in past 24 hours: Contrast: Stress Results Protocol: Parth Total dose(mL): Exercise Duration (min:sec): 4:[address] Depression (mm): Angina Score: Denis Score: METS: 5.8 Resting HR: 86 Resting BP: 133 / 87 Peak HR: 134 Peak BP: 165 / 86 Max Predicted HR: 151 89 % Max Predicted HR Target HR: 128 Double Product: [id number] Stress Summary: BP Response: Reason for Termination: Reached target heart rate or work-load Cardiac Symptoms: Dyspnea, Chest pain that resolved with rest. ECG Analysis Resting ECG: Normal sinus rhythm Stress EC mm ST depressions noticed in inferolateral leads with stress Arrhythmia: No significant arrhythmias noticed. No significant ectopic beats Echo Analysis Resting Echo: Normal global and segmental systolic function with no resting regional wall motion abnormality there is Peak Echo Analysis: mild hypokinesia noticed in mid to distal anterior and anterolateral wall with peak stress MEASUREMENTS (Male/Female) Normal Values CONCLUSIONS Abnormal treadmill echo stress test Poor exercise tolerance for age achieving only 5.8 METS Ischemic echocardiographic and ECG response to treadmill exercise Chest pressure with exercise, resolved with resting Dr Filemon Rayo (Electronically Signed) Final Date: 10 October 2024 11:41
[2024-10-10] MEDS: ASPIRIN 81 MG PO SCH (11:53)
[2024-10-10] MEDS: ATORVASTATIN 80 MG TAB PO STA (11:53)
[2024-10-10] MEDS: SODIUM CHLORIDE 0.9% 1,000 ML in EMPTY BAG 1 BAG IV SCH ×2 (11:54→20:28)
[2024-10-10 12:01] LABS: Glucose,Whole Blood 134 mg/dL (70-110)
[2024-10-10] MEDS: IV FLUID CONTINUATION 1,000 ML IV ONE ×3 (12:01→16:54)
[2024-10-10] MEDS: ASPIRIN 81 MG PO ONE (12:10)
[2024-10-10] MEDS: LIDOCAINE 1% INJ 10MG/ML (20 ML MDV) SQ ONE ×2 (12:22→17:27)
[2024-10-10] MEDS: MIDAZOLAM 2 MG/2 ML VIAL IVP ONE ×3 (12:24→18:10)
[2024-10-10] MEDS: HEPARIN SODIUM 1,000 UN/ML (10ML VL) IVP ONE ×2 (12:24→17:30)
[2024-10-10] MEDS: fentaNYL (PF) 50 MCG/ML 2 ML AMP IVP ONE ×2 (12:24→17:17)
[2024-10-10] MEDS: VERAPAMIL SYRINGE (5 MG/10 ML) INTRAARTER ONE (12:24)
[2024-10-10] MEDS: HEPARIN SODIUM,PORCINE 10,000 UNIT in SODIUM CHLORIDE 0.9% 1,000 ML IRRIGATION PRN (12:27)
[2024-10-10] MEDS: HEPARIN SODIUM,PORCINE (1 ML) 2,500 UNIT in SODIUM CHLORIDE 0.9% 250 ML IRRIGATION PRN (12:27)
[2024-10-10] MEDS: IOPAMIDOL-370 100ML BTL INJ ONE (13:19)
[2024-10-10] MEDS: TICAGRELOR 90 MG TAB PO ONE (17:26)
[2024-10-10] MEDS: IOPAMIDOL-300 100ML BTL INJ ONE ×2 (18:32→19:12)
[2024-10-10] MEDS: NITROGLYCERIN 1000MCG/10ML SYRINGE INTRACORON ONE (18:56)
[2024-10-10] MEDS ORDERED: ATROPINE SULFATE 0.1 MG/ML 10ML SYRINGE IV PRN (19:14)
[2024-10-10] MEDS ORDERED: MAG HYDROX/AL HYDROX/SIMETH 30 ML CUP PO PRN (19:14)
[2024-10-10] MEDS ORDERED: ZOLPIDEM 5 MG TAB PO PRN (19:14)
[2024-10-10] MEDS ORDERED: RX INFO: IV CONTRAST WAS GIVEN 1 EACH MISC MISCELLANE PRN (19:14)
[2024-10-10] MEDS: ATORVASTATIN 80 MG TAB PO SCH (20:27)
--- NOTE | 2024-10-10 21:11 | P.PCN ---
Date of Procedure: 10/10/24 Operative Findings: Percutaneous coronary intervention Performing physician Shailesh Graves MD Procedure performed 1. Successful stenting of the mid LAD using 2.75 x 18 mm Xience ALLISON with an excellent angiographic results 2. Successful stenting of the proximal LAD using 3.0 x 18 mm Xience ALLISON with an excellent angiographic results 3. Adjunctive use of IVUS 4. Selective right common femoral artery angiogram and ultrasound-guided access of the right common femoral artery Indication Please refer to diagnostic heart catheterization was performed by Dr. Rayo earlier today. The patient was admitted to the hospital with chest discomfort concerning for angina and underwent a heart catheterization and that revealed critical disease involving the mid LAD and intermediate disease involving the proximal LAD with a heavily calcified vessel. Approach Right common femoral artery Complications None Level of sedation Moderate with sedation length of 99 minutes Procedure description Please refer to diagnostic heart catheterization was performed by Dr. Raoy earlier today. The right common femoral artery was cannulated using micropuncture technique under ultrasound guidance the micropuncture wire passed easily then I placed initially a 6 [place] 11 cm sheath at the right common femoral artery with anticoagulation was initiated using heparin with continuous ACT monitoring. Subsequently I did engage the left main using JL for guiding catheter. I did wire the LAD and the wire was advanced to distal LAD using a whisper wire and running through wire. Initially I was attempting to wire the leg but I could not. For that reason both wire left in the LAD distally. Attempting advancing 2.0 x 12 mm noncompliant balloon was unsuccessful. Attempting advancing 1.5 mm noncompliant balloon was unsuccessful. Attempting advancing 1.5 c-Myc compliant balloon was unsuccessful because the artery was extremely calcified and tortuous. Finally I was able to advance 1.0 mm balloon and I did balloon angioplasty of the mid and proximal LAD but subsequently the balloon ruptured. I used another 1.0 x 12 mm balloon and I did balloon angioplasty again for the proximal to mid LAD but subsequently the balloon ruptured again. With that I was able to advance 1.5 mm balloon and again balloon angioplasty was performed for the proximal and mid LAD using a 1.5 mm balloon. Finally I was able to get 2.0 mm semicompliant balloon and again I did balloon angioplasty of the whole segment in the proximal to mid left anterior descending artery. Attempting advancing 2.5 mm noncompliant balloon was also successful. Please note that all the balloons advanced using guide liner after pulling the ros wire out. Attempting advancing 2.75 x 18 mm stent to the mid LAD was unsuccessful at that point everything came out and the wire and the guide came out. At that point I decided to upgrade my guide into a 7 [place] and using extra backup support guide using an EBU 3.75 guiding catheter with so I did exchange my 11 cm 6 [place] sheath into 23 cm 7 [place] sheath using a 3 5 wire and subsequently I was able to engage the left main again using a 7 [place] EBU 3.75 guiding catheter. The LAD was wired again using a whisper wire and the guide liner was advanced to the distal tip of the guide. With that I was able to advance 2.75 x 18 mm stent and to the mid LAD and to the proximal LAD I was able to advance 3.0 x 18 mm stents. Both stents were deployed and there is nominal pressure with postdilatation was performed for the mid LAD stent using 2.75 mm NC balloon. Final angiogram showed excellent angiographic results and the patient tolerated the procedure very well Postprocedure management Dual antiplatelet therapy using aspirin and Brilinta for at least 12 months Aggressive cholesterol control Follow-up with the patient
[2024-10-10] MEDS: ACETAMINOPHEN TAB 325 MG TAB PO PRN (22:08)
[2024-10-10] MEDS: NITROGLYCERIN SL TABS 0.4 MG TAB SUBLINGUAL PRN (23:55)
[2024-10-11] MEDS: TICAGRELOR 90 MG TAB PO SCH (00:01)
[2024-10-11] MEDS: ALPRAZolam 0.5 MG TAB PO PRN (00:38)
[2024-10-11 07:16] LABS: African American GFR (CKD) >90 (>60 ml/min/1.73 sqM); Non-African American GFR(CKD) >90 (>60 ml/min/1.73 sqM)
--- NOTE | 2024-10-11 13:05 | P.PN ---
Subjective HISTORY OF PRESENT ILLNESS: This is a 69-year-old female with a past medical history significant for hyperlipidemia, hypothyroidism, lung cancer with right middle lobe lobectomy in December 2023 followed by 3 rounds of chemo and 6 radiation treatments that ended in April 2024. Patient does not follow with a band sawyer. We have been asked to see the patient in consultation for chest pain. Patient examined at the bedside. Patient reports she has been trying to regain her strength and stamina since her treatment for lung cancer. She states over the past month she has been having chest pain that occurs with exertion. She also reports recently she has been getting nauseated with exertion as well. She states that she has a stress test ordered by her primary care physician that is scheduled for next week. However due to her increasing chest pain she presented to the hospital for further evaluation. The patient does report that she received sublingual nitro in the emergency room with relief of her chest discomfort. She states nic t she saw her oncologist, Dr. Finn, last week and was told that she had some new spots on her lungs but they were too small to biopsy. She states that she has another CAT scan scheduled in November. She is a non-smoker. She does report several glasses of red wine per week but did not quantify the amount. DIAGNOSTICS: - EKG reveals sinus mechanism with no signs of acute ischemia - Chest xray negative for acute process. COPD changes. - Chest CTA: Negative for pulmonary embolism. Stable postsurgical changes and chronic changes. No acute cardiopulmonary process. - Laboratory data: WBC 4.24. Hemoglobin 13.6. Platelet count 193. Sodium 136. Potassium 3.9. BUN 11.4. Creatinine 0.5. Troponin negative x 3. proBNP less than 20. - Current home cardiac medications include Zetia 10 mg at night and atorvastatin 20 mg at night - Echocardiogram obtained this admission reveals ejection fraction 55 to 60%, no obvious regional wall motion abnormalities, no significant valvular dysfunction. - Cardiac catheterization history: Patient denies - Patient underwent Parth stress test in November 2023 which was negative for ischemia 10/11/2024 Patient is status post cardiac catheterization yesterday with Dr. Rayo revealing critical disease of the mid LAD and intermediate disease involving the proximal LAD. Patient underwent stenting of the mid and proximal LAD yesterday with Dr. Graves. Patient examined this morning at bedside. Patient denies chest pain or pressure. She denies shortness of breath. Vital signs are stable. PHYSICAL EXAM: VITAL SIGNS: Reviewed. GENERAL: Well-developed in no acute distress. HEENT: Head is normocephalic. Pupils are equal, round. Sclerae anicteric. Mucous membranes of the mouth are moist. Neck supple. No JVD or thyromegaly LUNGS: Respirations even and unlabored. Lungs essentially clear to auscultation bilaterally. HEART: Regular rate and rhythm. S1 and S2 heard. ABDOMEN: Soft. Nondistended. Nontender. EXTREMITIES: Normal range of motion. No clubbing or cyanosis. Peripheral pulses intact. No lower extremity edema NEUROLOGIC: Awake and alert. Oriented x 3. 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 LDL goal less than 70. Continue additional cardiac medications Recommend outpatient cardiac MRI Patient is stable for discharge home today from a cardiac standpoint She will follow-up outpatient with Dr. Rayo Nurse practitioner note has been reviewed by physician. Signing provider agrees with the documented findings, assessment, and plan of care documented by INSPECTOR AUTOMATIC TYPEWRITER as a scribe. Objective - Vital Signs Vital signs: Vital Signs Temp 97.9 F 10/11/24 07:00 Pulse 80 10/11/24 07:00 Resp 17 10/11/24 07:00 BP 149/79 10/11/24 07:00 Pulse Ox 99 10/11/24 07:00 FiO2 Intake & Output 10/10/24 10/11/24 10/11/24 18:59 06:59 18:59 Intake Total 1380 Balance 1380 Intake: IV 1380 Oral 0 Other: # Voids 1 1 - Labs CBC & Chem 7: 10/10/24 04:54 10/11/24 06:49 Labs: Abnormal Lab Results - Last 24 Hours (Table) 10/11/24 Range/Units 06:49 Creatinine 0.37 L (0.52-1.04) mg/dL
--- NOTE | 2024-10-11 13:30 | P.PN ---
Subjective Progress Note Date: 10/10/24 This is a 69-year-old female patient of mine with a previous medical history significant for mixed hyperlipidemia, hypothyroidism, history of osteoporosis without pathological fracture, history of moderate obstructive sleep apnea, patient is a lifelong non-smoker, on surveillance CT of the coron byron arteries she was found to have a pulmonary nodule this is after she developed to have a significant COVID infection this was started back in July and 2021, where the CT scan of the chest showed right middle lobe nodule/mass with right upper lobe consolidation, she was treated with multiple courses of oral antibiotic and steroid, she was referred to pulmonary medicine, and the patient was feeling fine at that time, up till recently when she came for her wellness visit and she was sent for a surveillance CT scan of the chest with contrast that showed an enlargement of the right middle lobe mass as well as right upper lobe infiltrate she was sent to Dr. 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 Finn and after appropriate staining the biopsy was sent to PD-L1 and next generation sequencing it was recommended at that time for the patient to go for surgical intervention followed by chemotherapy therefore the patient was referred to Dr. Estrella she underwent robotic assisted thoracoscopic right middle lobe wedge resection x 2 and right upper lobe wedge resection x 1 along with mediastinal lymph node dissection patient has done very well after surgery and patient has been following with hematology oncology Dr. Finn as well as radiation oncologist and Dr. Hayes she just finished treatment in April 22, 2024 and she had a PET scan that confirmed that the disease is in remission and she has been doing fine apparently patient came to the emergency department with left-sided chest pain associated with diaphoresis and shortness of breath appears to be exertional at that time not all the time her D-dimer was slightly elevated, her chest x-ray did not show evidence of acute abnormalities except for COPD changes, because of that she underwent CT angiography of the chest that was negative for pulmonary bruising, it did show evidence of chronic changes and scarring in the right middle lobe due to surgical intervention, no evidence of a new or recurrent neoplasm at this time, but because of the presentation she was kept in the hospital for evaluation by cardiology echocardiogram was done that showed evidence of normal ejection fraction 55 to 60% and no significant va lvular motion abnormalities, 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 Gardner had to place 2 stents in the proximal LAD and with good angiographic result, she was started on Brilinta 90 mg orally twice daily along with aspirin, she was admitted back to the floor, patient is laying down in bed in no apparent distress, she is quite surprised about the finding, and she has been started on atorvastatin 80 mg orally once every day, she we will stay in the hospital overnight hopefully she will be discharged home tomorrow morning. REVIEW OF SYSTEMS: Constitutional: No documented fever, no chills, no night sweats. No weight change. No weakness, fatigue or lethargy. No daytime sleepiness. EENT: No headache. No blurred vision or double vision, no loss of vision. No loss of Hearing, no ringing in the ears, no dizziness. No nasal drainage or congestion. No epistaxis. No sore throat. Lungs: No shortness of breath, occasional cough, no sputum production. No wheezing. Reports dyspnea with activity. Cardiovascular: Positive for chest pain exertion, no lower extremity edema. No palpitations. No paroxysmal nocturnal dyspnea. No orthopnea. No lightheadedness or dizziness. No syncopal episodes. Abdominal: Reports no abdominal pain. No nausea, vomiting. No diarrhea. No constipation. No bloody or tarry stools reports loss of appetite. Genitourinary: No dysuria, increased frequency, urgency. No urinary retention. Musculoskeletal: No myalgias. No muscle weakness, no gait dysfunction, no frequent falls. No back pain. No neck pain. Integumentary: , no lesions. No rash or pruritus. No unusual bruising. No ch kieran in hair or nails. Neurologic: No aphasia. No facial droop. No change in mentation. No head injury. No headache. No paralysis. No paresthesia. Psychiatric: No depression. No anxiety. No mood swings. Endocrine: No abnormal blood sugars. No weight change. PHYSICAL EXAMINATION: General: 69-year-old female laying down in bed in no apparent distress. HEENT: Head is atraumatic, normocephalic, pupils were equal round reactive to light and recommendation, extraocular muscle movement were intact, sclera nonicteric, conjunctivae were pale, mucous membranes of the mouth are somewhat dry. Neck: Supple, no JVP, normal carotid upstroke bilaterally, no lymphadenopathy. Chest: Decreased breath sounds at the bases, few rhonchi, no expiratory wheezes, minimal chest wall tenderness Heart: First heart sound is normal, second heart sounds normal there is mild systolic ejection murmur 1/6 located in the left sternal border. Abdomen: Soft, nontender, nondistended, positive bowel sounds. Extremities: There is no edema no calf tenderness DP +2 bilaterally. Neurologic examination: Patient is awake alert and oriented x3, cranial nerves II-12 appear grossly intact, muscle power were 5 out of 5 in upper extremities and 5 out of 5 in bilateral lower extremities, deep tendon reflexes normal bilaterally. ASSESSMENT AND PLAN: 1. Coronary artery disease status post left heart catheterization with PCI of the LAD with 2 stents. Continue aspirin 81 mg once every day, Brilinta 90 mg orally twice every day, continue atorvastatin 80 mg once every day, monitor the patient's symptoms very closely, patient can be discharged home tomorrow morning if okay with cardiology. 2. Well-differentiated lipidic adenocarcinoma in a patient who is non-smoker that is negative for PD-L1 and next generation sequencing. Under the care of Dr. Finn from hematology oncology, status post surgical intervention and chemotherapy along with radiation therapy with Dr. Hayes she just finished her treatment on April 22, 2024 and she had a PET scan and followed up with her oncologist. Her disease is in remission at this time. 3. Mixed hyperlipidemia. Continue patient on atorvastatin 20 mg once every day as well as Zetia 10 mg once every day. 4. Hypothyroidism. Continue patient on Synthroid 50 mcg orally once every day. 5. Moderate obstructive sleep apnea continue patient CPAP as at home. 6. DVT prophylaxis. Early ambulation. Start the patient on Lovenox 40 mg subcutaneous every 24 hours. 7. GI prophylaxis. Continue with Protonix 40 mg orally once every day.. 8. Home tomorrow morning. Objective - Vital Signs Vital signs: Vital Signs Temp 97.9 F 10/10/24 02:00 Pulse 68 10/10/24 02:00 Resp 17 10/10/24 02:00 BP 115/65 10/10/24 02:00 Pulse Ox 98 10/10/24 02:00 FiO2 Intake & Output 10/09/24 10/10/24 10/10/24 18:59 06:59 18:59 Weight 65.771 kg 65.771 kg Other: # Voids 1 - Labs CBC & Chem 7: 10/10/24 04:54 10/11/24 06:49 Labs: Abnormal Lab Results - Last 24 Hours (Table) 10/09/24 10/09/24 10/09/24 Range/Units 12:18 12:18 12:18 Lymphocytes # 0.9 L (1.0-4.8) k/uL Sodium 131 L (137-145) mmol/L Glucose 111 H (74-99) mg/dL AST 37 H (14-36) U/L ALT 45 H (4-34) U/L Urine Appearance Cloudy H (Clear) Urine Ketones 1+ H (Negative)
[2024-10-11 14:33] VITALS: BP 108/68; PULSE 86; RESP 15; TEMP 98.4
--- NOTE | 2024-10-11 14:50 | P.DS ---
Providers Date of admission: 10/09/24 15:07 Expected date of discharge: 10/11/24 Attending physician: Candie Obregon Consults: 10/09/24 15:05 Consult Physician Routine Consulting Provider: [facility] Consult Reason/Comments: chest pain Do you want consulting provider notified?: Yes 10/10/24 19:14 Consult Physician Routine Consulting Provider: [facility] Consult Reason/Comments: Post Interventional patient Do you want consulting provider notified?: Already Contacted Primary care physician: Candie Obregon [place] [facility] Course: This is a 69-year-old female patient of [facility] with a previous medical history significant for mixed hyperlipidemia, hypothyroidism, history of osteoporosis without pathological fracture, history of moderate obstructive slee p apnea, patient is a lifelong non-smoker, on surveillance CT of the coronary arteries she was found to have a pulmonary nodule this is after she developed to have a significant COVID infection this was started back in July and 2021, where the CT scan of the chest showed right middle lobe nodule/mass with right upper lobe consolidation, she was treated with multiple courses of oral antibiotic and steroid, she was referred to pulmonary medicine, and the patient was feeling fine at that time, up till recently when she came for her wellness visit and she was sent for a surveillance CT scan of the chest with contrast that showed an enlargement of the right middle lobe mass as well as right upper lobe infiltrate she was sent to Dr. Gillis who performed a robotic bronchoscopy and transbronchial biopsy of the right middle lobe as well as the right upper lobe, this came back surprisingly lipidic adenocarcinoma well- differentiated this was discussed with hematology oncology Dr. Finn and after appropriate staining the biopsy was sent to PD-L1 and next generation sequencing it was recommended at that time for the patient to go for surgical intervention followed by chemotherapy therefore the patient was referred to Dr. Estrella she underwent robotic assisted thoracoscopic right middle lobe wedge resection x 2 and right upper lobe wedge resection x 1 along with mediastinal lymph node d issection patient has done very well after surgery and patient has been following with hematology oncology Dr. Finn as well as radiation oncologist and Dr. Hayes she just finished treatment in April 22, 2024 and she had a PET scan that confirmed that the disease is in remission and she has been doing fine apparently patient came to the emergency department with left-sided chest pain associated with diaphoresis and shortness of breath appears to be exertional at that time not all the time her D-dimer was slightly elevated, her chest x-ray did not show evidence of acute abnormalities except for COPD changes, because of that she underwent CT angiography of the chest that was negative for pulmonary bruising, it did show evidence of chronic changes and scarring in the right middle lobe due to surgical intervention, no evidence of a new or recurrent neoplasm at this time, but because of the presentation she was kept in the hospital for evaluation by cardiology echocardiogram was done that showed evidence of normal ejection fraction 55 to 60% and no significant valvular motion abnormalities, 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 Gardner had to place 2 stents in the proximal LAD and with good angiographic result, she was started on Brilinta 90 mg orally twice daily along with aspirin, she was admitted back to the floor, patient is laying down in bed in no apparent distress, she is quite surprised about the finding, and she has been started on atorvastatin 80 mg orally once every day, she we will stay in the hospital overnight hopefully she will be discharged home tomorrow morning. 10/11: Patient is sitting up in bed in no apparent distress, she denies any chest pain, shortness of breath, she has no abdominal pain, nausea vomiting or diarrhea, she seems to have tolerated the procedure very well, patient will be discharged home today continue with risk factor modification as well as dual antiplatelet therapy, continue maximal dose of statin, keep LDL cholesterol is in the 50 at all the time. Discharge diagnoses: 1. Coronary artery disease status post left heart catheterization with PCI of the LAD with 2 stents. 2. Well-differentiated lipidic adenocarcinoma in a patient who is non-smoker that is negative for PD-L1 and next generation sequencing. 3. Mixed hyperlipidemia. 4. Hypothyroidism. 5. Moderate obstructive sleep apnea Patient Condition at Discharge: Stable Plan - Discharge Summary Discharge Rx Participant: No New Discharge Prescriptions: New Aspirin 81 mg PO DAILY #90 tab Ticagrelor [Brilinta] 90 mg PO BID #60 tab Atorvastatin [Lipitor] 80 mg PO HS #90 tab Nitroglycerin Sl Tabs [Nitrostat] 0.4 mg SUBLINGUAL Q5M PRN #25 tab PRN Reason: Chest Pain Continue Ezetimibe [Zetia] 10 mg PO HS Discontinued Atorvastatin [Lipitor] 20 mg PO HS No Action Levothyroxine Sodium [Synthroid] 50 mcg PO QAM Indapamide [Lozol] 1.25 mg PO QAM Prolia (Unknown Dose) 1 dose SQ Q180D Folic Acid 0.8 mg PO DAILY Discharge Medication List Ezetimibe [Zetia] 10 mg PO HS 11/17/23 [History] Indapamide [Lozol] 1.25 mg PO QAM 11/17/23 [History] Levothyroxine Sodium [Synthroid] 50 mcg PO QAM 11/17/23 [History] Prolia (Unknown Dose) 1 dose SQ Q180D 11/17/23 [History] Folic Acid 0.8 mg PO DAILY 10/09/24 [History] Aspirin 81 mg PO DAILY #90 tab 10/11/24 [Rx] Atorvastatin [Lipitor] 80 mg PO HS #90 tab 10/11/24 [Rx] Nitroglycerin Sl Tabs [Nitrostat] 0.4 mg SUBLINGUAL Q5M PRN #25 tab 10/11/24 [Rx] Ticagrelor [Brilinta] 90 mg PO BID #60 tab 10/11/24 [Rx] Follow up Appointment(s)/Referral(s): Filemon Rayo MD [Medical Doctor] - 1 Week Candie Obregon MD [Primary Care Provider] - 1-2 days
--- NOTE | 2024-10-13 16:26 | P.CARDCATH ---
Date of Procedure: 10/10/24 Description of Procedure: DIAGNOSTIC CORONARY ANGIOGRAPHY and LEFT HEART CATH REPORT PROCEDURES PERFORMED: Left heart catheterization Selective coronary angiography Moderate conscious sedation for17 mins [Ultrasound assisted] Right radial access INDICATION: Abnormal stress test CONSENT: I have explained the procedural steps of above-mentioned procedures in layman's terms to the patient. I discussed the risks (including but not limited to stroke, emergent vascular or cardiac surgery or ), benefits and alternative therapies for the above-mentioned procedure. I discussed the risks of sedation/analgesia and blood product administration (if indicated). The patient has indicated understanding and acceptance of these risks. Conscious Sedation: Patient's ECG, heart rate, blood pressure, pulse oximetry were monitored throughout the duration of procedure under my direct supervision. [2] mg Versed and [50] mcg Fentanyl were used for induction of moderate conscious sedation. Total duration of moderate concious sedation 17 minutes. PROCEDURE: After explaining the risks, benefits and alternatives of the above mentioned procedures in detail to the patient, informed consent was obtained. Patient was taken to the catheterization lab, prepped and draped in usual sterile fashion using universal precuations. Ultrasound was used to identify the radial artery. 1% lidocaine was infiltrated over the right radial artery. A 6-Libyan sheath was placed and secured in the right radial artery using modified Seldinger technique. The sheath was flushed and 5 mg verapamil was administered intra-arterially. J tipped wire was advanced under fluoroscopic guidance. Once the wire tip reached aortic root [5000] units of IV heparin was given. Over the wire JR4 diagnostic catheter was advanced. The wire in place the catheter was manipulated to cross the aortic valve and entered into LV under f luoroscopy guidance. The wire was removed and the catheter was flushed. LV pressures were obtained and pullback was performed under fluoroscopy. Catheter was manipulated to selectively engage the right coronary ostium. Right coronary angiography was performed in different angiographic projections. The JR4 diagnostic catheter was exchanged for a JL 3.5 diagnostic catheter over the J-wire. The wire was removed, catheter was flushed and manipulated under fluoroscopy to selectively engaged the left coronary ostium. Left coronary angioplasty was performed in different angiographic projections. Catheter was removed over the wire. Radial sheath was flushed. The patient tolerated the procedure well. Plan is to proceed with PCI of mid LAD with Dr. Gardner HEMODYNAMICS: Aortic Pressure: 110/70 mmHg. LV pressure: 115/10 mmHg. LVEDP 15 mmHg. There was no significant gradient across the aortic valve. SELECTIVE CORONARY ARTERIOGRAPHY: LEFT MAIN: The left main is short and large caliber vessel. It bifurcates into the LAD and circumflex. Left main appears angiographically normal. LEFT ANTERIOR DESCENDING CORONARY ARTERY: LAD is a moderate caliber and reaches up to the apex. Proximal LAD appears angiographically normal. Mid LAD after giving small first diagonal branch has a 99% calcific stenosis just before giving the diagonal 2 branch. Diagonal 2 branch is a small caliber branch and is patent.. Distal LAD appears angiographically patent LEFT CIRCUMFLEX CORONARY ARTERY: It is nondominant vessel. LCx is moderate caliber. Proximal LCx is patent. Mid LCx before the bifurcation of OM and AV groove branch has 40 % calcific stenosis. Mid LCx bifurcates into a small AV groove branch and a medium caliber OM branch which is angiographically patent. RIGHT CORONARY ARTERY: Dominant vessel. The right coronary artery is a moderate caliber vessel which gives PDA and PLV branch. RCA, PDA and PL branch appears angiographically patent. IMPRESSION: 99% calcific occlusion of mid LAD 40% mid LCx stenosis PLAN: Plan for PCI with Dr. Gardner Performing Physician Filemon Rayo MD, FACC, RPVI Thank you for allowing [facility] to participate in this patient's care. Feel free to reach out in case of any followup questions.
== END 2024-10-11 16:33 | disposition home or self-care (01) ==
LOC: EC 11:36 → 6NMEDSUR 15:07
PROVIDERS: ADMIT Internal Medicine; ATTEND Internal Medicine
DX: I25.119 Atherosclerotic heart disease of native coronary artery with unspecified angina pectoris (principal); E03.9 Hypothyroidism, unspecified; E78.2 Mixed hyperlipidemia; G47.33 Obstructive sleep apnea (adult) (pediatric); M81.0 Age-related osteoporosis without current pathological fracture; Z79.890 Hormone replacement therapy; Z79.899 Other long term (current) drug therapy; Z85.118 Personal history of other malignant neoplasm of bronchus and lung; Z86.16 Personal history of COVID-19
CPT/HCPCS: 96372 ×2; 96360; 99285; 36415; 93005; 93306; 93351; 92978; 93458; 83880; 80053 ×2; 82565; 83690; 83735; 84484; 85025 ×2; 85610; 85730; 81001; 71046; 71275; G0378 ×3; C9600; C1760; C1887 ×3; C1769 ×4; C1894 ×3; C1725 ×7; C1753; C1874 ×3; J2250; J1644 ×3; J2003; J1650 ×2; J3010; Q9967 ×3; J2305

== ENCOUNTER → 2024-11-16 | Outpatient (CLI) | payer MEDICARE ==
--- NOTE | 2024-11-21 17:45 | MM ---
Reason for Exam: Screening (asymptomatic). Last mammogram was performed 2 year(s) and 7 month(s) ago. Patient History: Menarche at age 15. First Full-Term at age 20. Postmenopausal. Patient has history of breast feeding. Patient used Estrogen for 5 years. Benign Excisional Biopsy on the right side. 2008, Benign Excisional Biopsy on the left side. Risk Values: Lianet 5 year model risk: 2.1%. NCI Lifetime model risk: 6.5%. Prior Study Comparison: 11/06/2019 Bilateral Screening Mammogram, [facility]. 04/15/2022 Bilateral MG 3D screening mammo w/cad, [facility]. 05/03/2024 Right MG 3D diag mammo w/cad RT, [facility]. Tissue Density: There are scattered areas of fibroglandular density. Findings: Analyzed By CAD. Subareolar asymmetric density right MLO view is unchanged. Tiny less than 5 mm low-density nodularity subareolar left MLO view without a correlate on CC suggesting a tiny cyst. A few scattered benign round calcifications are noted. Microclip right breast from prior biopsy. A low right axillary tail lymph node is unchanged. There is no suspicious group of microcalcifications or new suspicious mass in either breast. Overall Assessment: Benign, BI-RAD 2 Management: Screening Mammogram of both breasts in 1 year. . Patient should continue monthly self-breast exams. A clinical breast exam by your physician is recommended on an annual basis. This exam should not preclude additional follow-up of suspicious palpable abnormalities. Note on Lianet scores and lifetime risk: 1. A Lianet score greater than 3% is considered moderate risk. If this is the case, consider specialist referral to assess eligibility for a risk reducing agent. 2. If overall lifetime risk for the development of breast cancer is 20% or higher, the patient may qualify for future screening with alternating mammogram and breast MRI. [facility], , 11/21/2024 5:43 PM. Electronically signed and approved by: Celio Alfred M.D. Radiologist
== END | disposition home or self-care (01) ==
LOC: RADMAMWWP 13:06
PROVIDERS: ATTEND Internal Medicine
DX: Z12.31 Encounter for screening mammogram for malignant neoplasm of breast (principal); R92.323 Mammographic fibroglandular density, bilateral breasts; Z78.0 Asymptomatic menopausal state
CPT/HCPCS: 77063; 77067

== ENCOUNTER → 2024-11-20 | Outpatient (CLI) | payer MEDICARE ==
[2024-11-20 13:01] LABS: African American GFR (CKD) >90 (>60 ml/min/1.73 sqM); Blood Urea Nitrogen 18 mg/dL (7-17); Non-African American GFR(CKD) >90 (>60 ml/min/1.73 sqM)
--- NOTE | 2024-11-20 13:55 | CT ---
EXAMINATION TYPE: CT chest w con CT DLP: 210.70 mGycm, Automated exposure control for dose reduction was used. DATE OF EXAM: 11/20/2024 1:34 PM COMPARISON: CTA chest 10/09/2024, CT chest 09/26/2024, 07/31/2024, PET CT 06/15/2024, 10/07/2023 CLINICAL INDICATION:Female, 69 years old with history of C34.2 Lung cancer; PHH, Hx lung ca, routine follow up TECHNIQUE: Multiple axial images were obtained through the chest following the administration of 100 cc of Isovue 300. . Coronal and sagittal reformats reviewed. FINDINGS: LUNGS/ PLEURA: Mild biapical pleural-parenchymal scarring. Postsurgical changes identified within the right upper and mid lung with suture material and scarring. Residual soft tissue thickening identif ied within the right suprahilar region. Couple of new subcentimeter groundglass densities within the posterior right upper lung are stable. Additional processing regions of groundglass opacity within th e right perihilar region are stable. No new or enlarging pulmonary nodules. Elevation of right hemidi aphragm from volume loss. Trace right pleural effusion. No pneumothorax. AIRWAY: Patent and unremarkable.. HEART: Size within normal limits. No pericardial effusion. Moderate coronary arterial calcifications. MEDIASTINUM: No enlarged lymph nodes greater than 1 cm short axis. VASCULATURE: No aortic aneurysm. Minimal atherosclerotic calcification of the aorta and its branches . MUSCULOSKELETAL: No acute osseous abnormalities. No aggressive osseous lesion. Mild multilevel degene rative disc disease. Dextrocurvature of the thoracic spine. SOFT TISSUES/LYMPH NODES: Unremarkable. LOWER NECK: No significant findings. UPPER ABDOMEN: No significant findings. IMPRESSION: 1. Posttreatment changes from right middle lobectomy redemonstrated. Stable indeterminate groundglas s opacities with no new or enlarging pulmonary nodules. Attention on follow-up exams. 2. No new adenopathy. 3. Similar trace right pleural effusion. [facility], , 11/20/2024 1:53 PM
== END | disposition home or self-care (01) ==
LOC: RADCTMAIN 12:12
PROVIDERS: ATTEND Internal Medicine Hematology & Oncology
DX: C34.2 Malignant neoplasm of middle lobe, bronchus or lung (principal); J90 Pleural effusion, not elsewhere classified; R91.8 Other nonspecific abnormal finding of lung field; Z90.2 Acquired absence of lung [part of]
CPT/HCPCS: 82565; 84520; 71260; 36415; Q9967

== ENCOUNTER → 2025-02-26 | Outpatient (CLI) | payer MEDICARE ==
[2025-02-26 12:02] LABS: African American GFR (CKD) >90 (>60 ml/min/1.73 sqM); Blood Urea Nitrogen 21 mg/dL (7-17); Non-African American GFR(CKD) >90 (>60 ml/min/1.73 sqM)
--- NOTE | 2025-02-26 13:46 | CT ---
EXAMINATION TYPE: CT chest w con DATE OF EXAM: 02/26/2025 COMPARISON: Most recent prior chest CT November 20, 2024 and older studies. CLINICAL INDICATION: Female, 69 years old with history of C34.2 MALIGNANT NEOPLASM OF MIDDLE LOBE, BR ONCHUS, lung ca TECHNIQUE: CT scan of the thorax is performed following with IV Contrast, patient injected with 100 mL of Isovue 300. CT DLP: 422 mGycm. Automated Exposure Control for Dose Reduction was Utilized. FINDINGS: LUNGS: Mild to moderate right greater than left biapical pleural/parenchymal scarring is redemonstrat ed. Postsurgical change in the right upper to midlung is redemonstrated. Stable 6 to 7 mm focal nodul e or nodular consolidation superior right lower lobe axial image 17. Persistent right midlung posttre atment changes extending anteriorly. Persistent right basilar linear scarring. Stable few micronodule s in the periphery of the left lung. Some new groundglass opacity in small nodularity in the anterior right upper lung. For reference is new 5 to 6 mm peripheral right upper lobe nodular-like image 19. HEART: Size within normal limits. Prominent proximal coronary artery calcification and/or more likely stents are redemonstrated. MEDIASTINUM: There are no definitive new greater than 1 cm mediastinal lymph nodes. No pericardial effusion is seen. OTHER: Scoliosis is redemonstrated. IMPRESSION: Posttreatment changes throughout the right lung are redemonstrated. There are new areas o f groundglass opacity and tiny nodularity in the right upper lobe. Active neoplastic recurrence canno t be excluded. Continued short-term CT monitoring in 2-3 months time is advised to reassess. [facility], , 02/26/2025 1:44 PM
== END | disposition home or self-care (01) ==
LOC: RADCTMAIN 11:24
PROVIDERS: ATTEND Internal Medicine Hematology & Oncology
DX: C34.2 Malignant neoplasm of middle lobe, bronchus or lung (principal); R91.8 Other nonspecific abnormal finding of lung field; Z98.890 Other specified postprocedural states
CPT/HCPCS: 82565; 84520; 71260; 36415; Q9967

== ENCOUNTER → 2025-05-07 | Outpatient (CLI) | payer MEDICARE ==
[2025-05-07 14:44] LABS: African American GFR (CKD) >90 (>60 ml/min/1.73 sqM); Blood Urea Nitrogen 21 mg/dL (7-17); Non-African American GFR(CKD) >90 (>60 ml/min/1.73 sqM)
--- NOTE | 2025-05-07 15:32 | CT ---
CT chest with contrast. HISTORY: Lung cancer, progression study. COMPARISON: 02/26/2025 TECHNIQUE: Multiple axial images were obtained through the thorax following the uneventful administra tion of nonionic IV contrast material. FINDINGS: There are postsurgical changes in the right upper lobe. There is broad bandlike density with suture m aterial extending from the right hilum to the anterior right upper lobe wedge resection and scarring. There are multiple innumerable lung nodules bilaterally which have increased in number and size. For example there is a 6.6 mm groundglass nodule in the superior segment of the right lower lobe which is now 10.7 mm. There is a 4.3 mm nodule in the left lower lobe which is now 5.6 mm. There is been interval development of a small right pleural effusion. The great vessels the chest are normal. There is no mediastinal, hilar or axillary adenopathy. There is no pulmonary embolus. Limited scanning of the upper abdomen reveals no gross abnormality.. No focal osseous lesions are seen. IMPRESSION: Interval worsening in metastatic lung cancer in both lungs with multiple innumerable pulmonary nodule s increasing both in number and size as described above. In addition, there is been interval developm ent of a small right pleural effusion. [facility], , 05/07/2025 3:30 PM
== END | disposition home or self-care (01) ==
LOC: RADCTMAIN 14:01
PROVIDERS: ATTEND Internal Medicine Hematology & Oncology
DX: C34.2 Malignant neoplasm of middle lobe, bronchus or lung (principal); M81.0 Age-related osteoporosis without current pathological fracture; E03.9 Hypothyroidism, unspecified; E78.5 Hyperlipidemia, unspecified; R91.8 Other nonspecific abnormal finding of lung field; J90 Pleural effusion, not elsewhere classified
CPT/HCPCS: 82565; 84520; 71260; 36415; Q9967

== ENCOUNTER → 2025-05-20 | Outpatient (CLI) | payer MEDICARE ==
--- NOTE | 2025-05-21 00:15 | MR ---
INDICATION: Patient age:Female; 69 years old; Reason for study: C34.2; PHH. COMPARISON: PET CT 06/15/2024, MRI brain 12/13/2023, 11/02/2012, CT brain 05/14/2011. TECHNIQUE: Multi planar, multi sequence imaging was performed through the brain. The patient was then given 6 cc of Gadobutrol intravenously and multi planar, T1 fat-saturation images were obtained. FINDINGS: The sarabia-white junctions, ventricular system, basal cisterns appear unremarkable. Mild age-appropriat e cerebral volume loss. Diffusion-weighted imaging shows no evidence of restricted diffusion to sugge st acute/subacute infarct. Intracranial arterial flow voids are maintained. Midline structures show n o abnormality. Patchy areas of high T2/FLAIR signal intensity are seen within the periventricular and subcortical white matter. New region within the splenium of the corpus callosum consistent with prio r lacunar infarct. The susceptibility weighted images do not reveal any evidence for micro-hemorrhage . Redemonstration of incidental developmental venous anomaly with prominent draining vein within the left cerebellum. After administration of gadolinium, no abnormal enhancement is seen. The bone marrow signal is within normal limits. Bilateral aphakia. Mild mucosal thickening in the et hmoid sinuses. IMPRESSION: 1. No evidence of intracranial mass, acute/subacute infarct, or abnormal enhancement to suggest metas tatic disease. 2. Nonspecific white matter changes, likely related to small vessel ischemic disease. 3. Remote lacunar infarct within the splenium of the corpus callosum which is new from prior MRI. 4. 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 [facility], , 05/21/2025 12:13 AM
== END | disposition home or self-care (01) ==
LOC: RADMRIMAIN 17:25
PROVIDERS: ATTEND Internal Medicine Hematology & Oncology
DX: C34.2 Malignant neoplasm of middle lobe, bronchus or lung (principal); E03.9 Hypothyroidism, unspecified; E78.5 Hyperlipidemia, unspecified; M81.0 Age-related osteoporosis without current pathological fracture; Z86.73 Personal history of transient ischemic attack (TIA), and cerebral infarction without residual deficits; R90.82 White matter disease, unspecified
CPT/HCPCS: 70553; A9585